=== PATIENT | female | born 1975 | race Caucasian/White ===

== ENCOUNTER → 2016-12-23 | Outpatient (CLI) | payer OTHER ==
[~2016-12-23] MED LIST: LEVO75TA PO; LOSA50TA6 PO; VENL75CA PO; [UNRECOGNIZED DRUG - SUPPLY]
== END | disposition home or self-care (01) ==
LOC: C.LABSPEC 13:36
PROVIDERS: ATTEND Family Medicine
DX: R30.0 Dysuria (principal)

== ENCOUNTER → 2017-01-18 | Outpatient (CLI) | payer OTHER ==
[2017-01-15 09:10] LABS: THYROID STIMULATING HORMONE 0.601 uIu/ml (0.300-4.500)
== END | disposition home or self-care (01) ==
LOC: C.LAB 14:43
PROVIDERS: ATTEND Family Medicine
DX: E03.9 Hypothyroidism, unspecified (principal)

== ENCOUNTER → 2017-04-30 | Outpatient (CLI) | payer OTHER ==
[2017-04-30 11:25] LABS: ALT/SGPT 53 U/L (12-78); AST/SGOT 24 U/L (15-37); BLOOD UREA NITROGEN 8 mg/dl (7-18); BUN/CREATININE RATIO 10.5 (10-20); CALCIUM 8.8 mg/dl (8.5-10.1); CARBON DIOXIDE 28 mmol/L (21-32); CHLORIDE 108 mmol/L (98-107); CREATININE 0.74 mg/dl (0.60-1.20); GLUCOSE 78 mg/dl (70-99); SODIUM 141 mmol/L (136-145)
[2017-04-30 11:42] LABS: ALB/GLOB RATIO 1.2 (0.9-2); ALKALINE PHOSPHATASE 78 U/L (45-117); CHOLESTEROL 151 mg/dl (0-200); CHOLESTEROL/HDL RATIO 3.5; HDL CHOLESTEROL 43 mg/dl; LDL CHOLESTEROL CALCULATED 89 mg/dl; THYROID STIMULATING HORMONE 0.244 uIu/ml (0.300-4.500); TRIGLYCERIDES 96 mg/dl (0-150); VERY LOW DENSITY LIPOPROT CALC 19 mg/dl
== END | disposition home or self-care (01) ==
LOC: C.LAB 16:23
PROVIDERS: ATTEND Family Medicine
DX: E55.9 Vitamin D deficiency, unspecified (principal); E03.9 Hypothyroidism, unspecified; I10 Essential (primary) hypertension; F32.0 Major depressive disorder, single episode, mild

== ENCOUNTER → 2017-06-14 | Outpatient (CLI) | payer OTHER ==
[2017-06-14 16:00] LABS: THYROID STIMULATING HORMONE 0.798 uIu/ml (0.300-4.500)
== END | disposition home or self-care (01) ==
LOC: C.LAB 14:43
PROVIDERS: ATTEND Family Medicine
DX: E03.9 Hypothyroidism, unspecified (principal)

== ENCOUNTER → 2017-12-15 | Outpatient (CLI) | payer OTHER | END | disposition home or self-care (01) | LOC: C.LAB 15:43 | PROVIDERS: ATTEND Family Medicine | DX: E55.9 Vitamin D deficiency, unspecified (principal); E03.9 Hypothyroidism, unspecified ==

== ENCOUNTER → 2018-01-19 | Outpatient (CLI) | payer OTHER ==
--- NOTE | 2018-01-19 16:37 | DIAGNOSTIC IMAGING REPORT ---
EXAMINATION: PELVIC ULTRASOUND (transabdominal and endovaginal scanning)) CLINICAL HISTORY: PELVIC CYST COMPARISON STUDY: None FINDINGS: The uterus measured 9.2 x 4.3 x 4.6 cm. The endometrial stripe measured 3 mm. An IUD is visualized.. The right ovary measured 22 x 10 x 14 mm.. The left ovary measured 35 x 27 x 17 mm. A 15 mm follicle is visualized.. There is no ultrasonographic evidence of ovarian torsion. It should be noted that ovarian torsion can be present with normal Doppler ultrasonographic findings. There was no evidence of pathologic free pelvic fluid. IMPRESSION: 1. No significant abnormalities. Electronically signed by: Marc Burdick M.D. 01/19/2018 4:36 PM Dictated Date/Time: 01/19/2018 4:33 PM
== END | disposition home or self-care (01) ==
LOC: C.ULTR 15:37
PROVIDERS: ATTEND Family Medicine
DX: R10.30 Lower abdominal pain, unspecified (principal)

== ENCOUNTER → 2018-01-26 | Outpatient (CLI) | payer OTHER | END | disposition home or self-care (01) | LOC: C.LAB 15:53 | PROVIDERS: ATTEND Family Medicine | DX: E03.9 Hypothyroidism, unspecified (principal) ==

== ENCOUNTER → 2018-07-08 | Outpatient (CLI) | payer OTHER ==
[~2018-07-08] MED LIST changes: -VENL75CA PO; +VENL75CA88 PO
[2018-07-08 11:41] LABS: BASO % 0.2 %; BASO ABS # 0.01 K/uL (0-0.2); EOS % 2.2 %; EOS ABS # 0.12 K/uL (0-0.5); HEMATOCRIT 40.8 % (37-47); HEMOGLOBIN 13.7 g/dL (12.0-16.0); LYMPH % 33.3 %; LYMPH ABS # 1.78 K/uL (1.2-3.4); MEAN CELL VOLUME 91.5 fL (80-100); MEAN CORPUSCULAR HEMOGLOBIN 30.7 pg (25-34); MEAN CORPUSCULAR HGB CONC 33.6 g/dl (32-36); MEAN PLATELET VOLUME 9.4 fL (7.4-10.4); MONO % 6.2 %; MONO ABS # 0.33 K/uL (0.11-0.59); NEUT % 58.1 %; NEUT ABS # 3.11 K/uL (1.4-6.5); PLATELET COUNT 282 K/uL (130-400); RED CELL DISTRIBUTION WIDTH CV 13.5 % (11.5-14.5); RED CELL DISTRIBUTION WIDTH SD 44.4 fL (36.4-46.3); WHITE BLOOD COUNT 5.35 K/uL (4.8-10.8)
[2018-07-08 12:04] LABS: ALBUMIN 3.9 gm/dl (3.4-5.0); ALT/SGPT 49 U/L (12-78); AST/SGOT 22 U/L (15-37); BLOOD UREA NITROGEN 9 mg/dl (7-18); CALCIUM 8.8 mg/dl (8.5-10.1); CARBON DIOXIDE 26 mmol/L (21-32); CREATININE 0.87 mg/dl (0.60-1.20); GLUCOSE 83 mg/dl (70-99); POTASSIUM 4.1 mmol/L (3.5-5.1); SODIUM 139 mmol/L (136-145)
[2018-07-08 12:15] LABS: ALKALINE PHOSPHATASE 80 U/L (45-117); CHOLESTEROL 192 mg/dl (0-200); LDL CHOLESTEROL CALCULATED 122 mg/dl; TOTAL PROTEIN 7.3 gm/dl (6.4-8.2)
== END | disposition home or self-care (01) ==
LOC: C.LAB 11:19
PROVIDERS: ATTEND Family Medicine
DX: Z13.220 Encounter for screening for lipoid disorders (principal); D50.9 Iron deficiency anemia, unspecified

== ENCOUNTER 2023-07-12 15:53 | Inpatient (IN) ==
[2023-07-12 20:13] LABS: Basophils # (auto) 0.01 K/uL (0-0.2); Basophils % (auto) 0.1 %; Eosinophils # (auto) 0.17 K/uL (0-0.50); Eosinophils % (auto) 2.4 %; Hematocrit (blood only) 44.4 % (37.0-47.0); Hemoglobin 15.1 g/dl (12.0-16.0); Immature Granulocytes # (auto) 0.01 K/uL (0.01-0.20); Immature Granulocytes % (auto) 0.1 %; Lymphocytes # (auto) 1.59 K/uL (1.2-3.4); Lymphocytes % (auto) 22.6 %; Mean Corpuscular Hemoglobin 30.9 pg (25.0-34.0); Mean Corpuscular Volume 90.8 fL (80.0-100.0); Mean Platelet Volume 9.1 fL (9.4-12.4); Monocytes # (auto) 0.38 K/uL (0.11-0.59); Monocytes % (auto) 5.4 %; Neutrophils # (auto) 4.86 K/uL (1.40-6.50); Neutrophils % (auto) 69.4 %; Platelet Count 324 K/uL (130-400); RDW Coefficient of Variation 13.6 % (11.5-14.5); RDW Standard Deviation 44.4 fL (36.4-46.3); Red Blood Count 4.89 M/uL (4.20-5.40); White Blood Count 7.02 K/ul (4.8-10.8)
[2023-07-12 20:31] LABS: Alanine Aminotransferase 154 U/L (7-52); Albumin Globulin Ratio 1.5 (0.9-2); Albumin Level 4.9 gm/dl (3.4-5.0); Alkaline Phosphatase 131 U/L (34-104); Anion Gap 10 (3-11); Aspartate Aminotransferase 39 U/L (13-39); BUN Creatinine Ratio 11.7 (10-20); Bilirubin,Total 0.6 mg/dl (0.2-1.0); Blood Urea Nitrogen 9 mg/dl (6-23); Calcium 10.3 mg/dl (8.6-10.3); Carbon Dioxide 28 mmol/L (21-32); Chloride 104 mmol/L (98-107); Est GFR (African American) 108.1 ml/min; Est GFR (Non-African American) 93.2 ml/min; Globulin 3.3 gm/dl (2.5-4.0); Glucose 93 mg/dl (70-99(Fasting)); Lipase 19 U/L (11-82); Sodium 142 mmol/L (136-145); Total Protein 8.2 gm/dl (6.0-8.3)
[2023-07-12 20:37] LABS: Troponin I High Sensitivity < 2.3 pg/ml (0-14)
[2023-07-12] MEDS ORDERED: ACETAMINOPHEN 500 MG TAB PO STA (21:29)
[2023-07-12] MEDS ORDERED: MoRPHine SULFATE 4 MG/ML 1 ML CARP\\VIAL IV STA ×2 (21:42→22:48)
[2023-07-12] MEDS ORDERED: SODIUM CHLORIDE 0.9% 1,000 ML IV ONE (21:45)
--- NOTE | 2023-07-12 21:53 | Emergency Department Note ---
Impression & Plan Abdominal pain ED Provider Note Provider: Chaim Leal MD DATE OF SERVICE: 07/12/2023 CHIEF COMPLAINT: Increased abdominal pain HISTORY OF PRESENT ILLNESS: Patient is a 47-year-old female history of gastroparesis, significant esophagitis, GERD, thyroiditis, and recent cholecystectomy on the with Dr. Olivarez who presented here today reporting increased upper abdominal pain developing over the last several days. Has had pain since surgery. No falls reported. No nausea or vomiting. Not having much in the way of bowel movements but has been a chronic issue according to mother a t bedside. Has been using home Percocet which has not helped much with the pain. No fevers reported. Tight squeezing this in the mid upper abdomen reported. Denies significant shortness of breath but is trying to breathe through some of the pain. PAST MEDICAL HISTORY: As noted above MEDICATIONS: Reviewed home medications SOCIAL HISTORY: Non-smoker PHYSICAL EXAM: GENERAL: alert and oriented laying on the stretcher appears uncomfortable holding her upper abdomen. Mother at bedside Head: normocephalic and atraumatic EYES: No injection, discharge or icterus. NECK: Trachea midline. Supple. ENT: Mucous membranes pink and moist. LUNGS: Airway patent. No retractions. Breath sounds clear with good air entry bilaterally. HEART: Regular rate and rhythm. No chest wall tenderness ABDOMEN: Soft and non-tender in the lower abdomen holding her upper abdomen with tenderness in the mid epigastric to right upper quadrant. Port sites appear intact and healed without significant erythema. SKIN: Acyanotic, warm, dry, without rashes EXTREMITIES: Without swelling, tenderness or deformity NEUROLOGICAL: No focal deficits. No aphasia. No facial droop or slurred speech. EK beats per min. Normal sinus rhythm. No PVC or PAC. No acute ST segment elevation or depression with QTc 435. CONTINUOUS CARDIAC MONITORING: was ordered and showed a heart rate of 70s-80s bpm in normal sinus rhythm PDMP was checked without noted issue. Patient's laboratory studies and imaging reviewed. Differential includes Appendicitis, ovarian cyst, ovarian torsion, ectopic , TOA, PID, infections, diverticulitis, UTI, obstruction, mesenteric ischemia, aortic pathology, inflammatory bowel disease, renal colic, PUD, pancreatitis, biliary pathology, hernia, volvulus, constipation, as well as other pathologies. IMPRESSION/MEDICAL DECISION MAKING: Patient history of several different GI illness and recent cholecystectomy. Obviously postsurgical some concern for intra-abdominal pathology given her pain here. Not having nausea or vomiting. Reports sites do not appear significantly inflamed. No significant lower abdominal tenderness. No trauma reported. No fever. Afebrile here. Blood work is reassuring without evidence of acute leukocytosis. Doubt sepsis. No evidence of acute hepatitis or pancreatitis based on labs or evidence of acute renal failure. Decreased intake reported however given some IV fluid. Gets morphine for pain. Will send for CT scan to look for acute intra-abdominal pathology. EKG and troponin completed to exclude cardiac etiology and reassuring. Urinalysis negative. CT abdomen pelvis per radiology report with postsurgical changes trace residual free air but no evidence of biliary ductal dilation, radiopaque stone, or fluid collection. Reevaluation the patient still with significant discomfort. We will give some additional morphine. Not having significant hypoxia, tachycardia, troponin elevation, or shortness of breath seems consistent with PE. Discussed with general surgery team here as she is several days postop. Ultrasound completed per surgery direction. Given some Toradol, Protonix and Pepcid. Still with difficult pain and ultrasound not significantly remarkable. CT chest completed to exclude PE although again I have a lower suspicion for this. Discussed with the surgery team to further evaluate given her ongoing pain likely admit for further care and observation DIAGNOSIS: Postoperative abdominal pain DISPOSITION: Evaluated by the surgical team Patient was agreeable with this plan. Past Med/Surg History Medical History Depression Morgan's thyroiditis History of COVID-09 SEPTEMBER 2022>RESOLVED Hypertension Hypothyroidism Morbid obesity with BMI of 40.0-44.9, adult Postoperative bile leak Surgical History History of carpal tunnel release left History of foot surgery plantar warts removed History of tonsillectomy History of wisdom tooth extraction under local Hx laparoscopic cholecystectomy (07/08/23) Laparoscopic Cholecystectomy(Not Applicable) - Rosas Olivarez DO, FACS Family History Mother Family history of reaction to anesthesia difficulty waking Social History Smoking Status: Never smoker Tobacco Type: Cigarettes Second Hand Exposure: No; Do You Dip or Chew Tobacco: No; Hx Alcohol Use: No Hx Substance Use: No Preferred Language: French Communication Ability: Effective Visual Impairment: No Limitations Behavioral Medical Director Required: No Beliefs That Will Affect Care: None Current Living Situation: Family Current Living Situation Comment: Lives with children Other Information That Helps Us Care for You: No Feels Safe at Home: Yes Safety Concerns: Feels Safe At This Time Assistive Devices: None Allergies Allergies Allergy/AdvReac Type Severity Reaction Status Date / Time chlorzoxazone Allergy Severe THROAT & Verified 07/12/23 22:42 FACIAL SWELLING ciprofloxacin Allergy Intermediate Hives Verified 07/12/23 22:42 ferrous fumarate Allergy Intermediate Hives Verified 07/12/23 22:42 [From Prenatabs FA] folic acid Allergy Intermediate Hives Verified 07/12/23 22:42 [From Prenatabs FA] vitamins with Allergy Intermediate Hives Verified 07/12/23 22:42 calcium no.78 [From Prenatabs FA] Quinolones Allergy Intermediate Hives Verified 07/12/23 22:42 Home Meds Home Medications Medication Instructions Recorded Confirmed bupropion HCl 150 mg 24 hr tablet, 150 mg PO QAM 12/30/21 07/12/23 extended release (Wellbutrin XL) bupropion HCl 300 mg 24 hr tablet, 300 mg PO QAM 12/30/21 07/12/23 extended release (Wellbutrin XL) duloxetine 60 mg capsule,delayed 60 mg PO BID 12/30/21 07/12/23 release (Cymbalta) levothyroxine 125 mcg capsule 125 mcg PO QAM 12/30/21 07/12/23 losartan 100 mg tablet 100 mg PO QAM 11/27/22 07/12/23 ergocalciferol (vitamin D2) 1,250 50,000 unit PO WE 07/08/23 07/12/23 mcg (50,000 unit) capsule (Vitamin D2) semaglutide 1 mg/dose (4 mg/3 mL) 0 mg subcut WE 07/08/23 07/12/23 subcutaneous pen injector (Ozempic) Previous Rx's Medication Instructions Recorded pantoprazole 40 mg tablet,delayed 40 mg PO DAILY #90 tabs 06/03/23 release (Protonix) oxycodone-acetaminophen 5 mg-325 1 - 2 tab PO .q4-6h PRN pain, for 07/08/23 mg tablet (Percocet) initial therapy, max 6 tabs per day #15 tabs Results & Data (ED) Vital Signs Vital Signs - 24 hr 07/12/23 16:03 07/12/23 20:30 07/12/23 22:18 Temperature 36.9 C Temperature Source Temporal Artery Scan Pulse Rate 95 H Pulse Rate [Finger] 78 83 Pulse Rhythm [Finger] Regular Regular Pulse Strength [Finger] Normal Normal Respiratory Rate 20 20 Respiratory Effort / Characteristics Non-Labored Spontaneous Non-Labored Spontaneous Respiratory Depth Normal Normal Blood Pressure 128/85 Blood Pressure [Right Arm] 163/89 H 169/105 H Blood Pressure Mean 99 Blood Pressure Mean [Right Arm] 113 126 Pulse Oximetry 98 99 97 Oxygen Delivery Method Room Air Room Air Room Air Sepsis Recent Fever Within 48 Hours No Sepsis New/Unexplained Change in Mental Status No Sepsis Action Taken by Nursing No Action Required 07/13/23 00:11 07/12/23 22:43 07/13/23 02:26 Temperature Temperature Source Pulse Rate 86 Pulse Rate [Finger] 66 76 Pulse Rhythm [Finger] Pulse Strength [Finger] Respiratory Rate 20 18 Respiratory Effort / Characteristics Non-Labored Spontaneous Non-Labored Spontaneous Respiratory Depth Normal Normal Blood Pressure Blood Pressure [Right Arm] 169/105 H 169/101 H Blood Pressure Mean Blood Pressure Mean [Right Arm] 126 123 Pulse Oximetry 95 91 Oxygen Delivery Method Room Air Room Air Sepsis Recent Fever Within 48 Hours Sepsis New/Unexplained Change in Mental Status Sepsis Action Taken by Nursing Laboratory Data 07/12/23 20:00 07/12/23 20:00 Lab Results 07/12/23 07/12/23 07/12/23 Range/Units 20:00 20:00 Unknown WBC 7.02 (4.8-10.8) K/ul RBC 4.89 (4.20-5.40) M/uL Hgb 15.1 (12.0-16.0) g/dl Hct 44.4 (37.0-47.0) % MCV 90.8 (80.0-100.0) fL MCH 30.9 (25.0-34.0) pg MCHC 34.0 (32.0-36.0) g/dL RDW Std Deviation 44.4 (36.4-46.3) fL RDW Coeff of Iker 13.6 (11.5-14.5) % Plt Count 324 (130-400) K/uL MPV 9.1 L (9.4-12.4) fL Immature Gran % (Auto) 0.1 % Neut % (Auto) 69.4 % Lymph % (Auto) 22.6 % Gage % (Auto) 5.4 % Eos % (Auto) 2.4 % Baso % (Auto) 0.1 % Neut # (Auto) 4.86 (1.40-6.50) K/uL Lymph # (Auto) 1.59 (1.2-3.4) K/uL Gage # (Auto) 0.38 (0.11-0.59) K/uL Eos # (Auto) 0.17 (0-0.50) K/uL Baso # (Auto) 0.01 (0-0.2) K/uL Immature Gran # (Auto) 0.01 (0.01-0.20) K/uL Sodium 142 (136-145) mmol/L Potassium 4.0 (3.5-5.1) mmol/L Chloride 104 (98-107) mmol/L Carbon Dioxide 28 (21-32) mmol/L Anion Gap 10 (3-11) BUN 9 (6-23) mg/dl Creatinine 0.77 (0.6-1.2) mg/dl Est Cr Clr Drug Dosing Not Reportable Est GFR ( Amer) 108.1 ml/min Est GFR (Non-Af Amer) 93.2 ml/min BUN/Creatinine Ratio 11.7 (10-20) Glucose 93 (70-99(Fasting)) mg/dl Calcium 10.3 (8.6-10.3) mg/dl Total Bilirubin 0.6 (0.2-1.0) mg/dl AST 39 (13-39) U/L ALT 154 H (7-52) U/L Alkaline Phosphatase 131 H (34-104) U/L Troponin I High Sens < 2.3 (0-14) pg/ml Total Protein 8.2 (6.0-8.3) gm/dl Albumin 4.9 (3.4-5.0) gm/dl Globulin 3.3 (2.5-4.0) gm/dl Albumin/Globulin Ratio 1.5 (0.9-2) Lipase 19 (11-82) U/L Urine Color Dark Yellow Urine Appearance Clear (Clear) Urine pH 7.5 (4.5-7.5) Ur Specific [place] 1.020 (1.000-1.030) Urine Protein Trace H (Negative) Urine Glucose (UA) Negative (Negative) Urine Ketones Trace H (Negative) Urine Blood Negative (Negative) Urine Nitrite Negative (Negative) Urine Bilirubin Negative (Negative) Urine Urobilinogen Negative (Negative) Ur Leukocyte Esterase Negative (Negative) Urine WBC (Auto) 1-5 (0-5) /hpf Urine RBC (Auto) 0-4 (0-4) /hpf U Hyaline Cast (Auto) 1-5 (0-5) /lpf U Epithel Cells (Auto) >30 H (0-5) /lpf Urine Bacteria (Auto) Negative (Negative) Administered Medications Bupropion HCl (Bupropion Xl 150 Mg Tabcr) 150 mg PO QAM PENDING SALE TO [facility] Stop: 08/12/23 08:59 Last Admin: 07/13/23 07:59 Dose: 150 mg Documented By: EILEEN Bupropion HCl (Bupropion Xl 300 Mg Tabcr) 300 mg PO QAM PENDING SALE TO [facility] Stop: 08/12/23 08:59 Last Admin: 07/13/23 07:59 Dose: 300 mg Documented By: EILEEN Duloxetine HCl (Duloxetine Hcl 60 Mg Cap) 60 mg PO BID PENDING SALE TO [facility] Stop: 08/12/23 08:59 Last Admin: 07/13/23 08:00 Dose: 60 mg Documented By: EILEEN Heparin Sodium (Porcine) (Heparin Sod 5,000 Unit/0.5 Ml Vial) 5,000 units SQ Q12 PENDING SALE TO [facility] Stop: 08/12/23 08:59 Last Admin: 07/13/23 08:00 Dose: Not Given Documented By: EILEEN Lactated Ringer's (Lr) 1,000 mls @ 75 mls/hr IV .[id number] PENDING SALE TO [facility] Stop: 08/12/23 05:38 Last Admin: 07/13/23 06:26 Dose: 75 mls/hr Documented By: KIAH Pantoprazole Sodium 40 mg/ (Syringe) 10 mls @ 5 mls/min IV DAILY@1100 PENDING SALE TO [facility] Stop: 08/12/23 10:59 Last Admin: 07/13/23 11:38 Dose: 5 mls/min Documented By: SHRUTHI Ketorolac Tromethamine (Ketorolac Tromethamine 15 Mg/Ml Vial) 15 mg IV Q6H PRN PRN Reason: Pain Stop: 07/18/23 05:38 Last Admin: 07/13/23 09:23 Dose: 15 mg Documented By: EILEEN Levothyroxine Sodium (Levothyroxine Sodium 125 Mcg Tablet) 125 mcg PO DAILYBB PENDING SALE TO [facility] Stop: 08/12/23 06:29 Last Admin: 07/13/23 08:00 Dose: 125 mcg Documented By: EILEEN Losartan Potassium (Losartan Potassium 50 Mg Tab) 100 mg PO QAM PENDING SALE TO [facility] Stop: 08/12/23 08:59 Last Admin: 07/13/23 08:00 Dose: 100 mg Documented By: EILEEN Morphine Sulfate (Morphine Sulfate 4 Mg/Ml 1 Ml Carp\Vial) 3 mg IV Q3H PRN PRN Reason: Severe Pain (Scale 7, 8, 9,10) Stop: 07/27/23 05:38 Last Admin: 07/13/23 11:51 Dose: 3 mg Documented By: SHRUTHI Discontinued Medications Acetaminophen (Acetaminophen 500 Mg Tab) 1,000 mg PO NOW STA Stop: 07/12/23 21:30 Last Admin: 07/12/23 21:32 Dose: 1,000 mg Documented By: KIAH Sodium Chloride (Nss 1000ml) 1,000 mls @ 999 mls/hr IV .Q1H1M ONE Stop: 07/12/23 22:45 Last Infusion: 07/12/23 22:58 Dose: 0 mls/hr Documented By: Admin: 07/12/23 21:59 Dose: 999 mls/hr Documented By: BRENDEN Famotidine (Pepcid 20mg Iv Push) 20 mg in 5 mls @ 2.5 mls/min IV NOW STA Stop: 07/12/23 23:11 Last Admin: 07/12/23 23:39 Dose: 2.5 mls/min Documented By: KIAH Pantoprazole Sodium 40 mg/ (Syringe) 10 mls @ 5 mls/min IV NOW ONE Stop: 07/12/23 23:11 Last Admin: 07/12/23 23:39 Dose: 5 mls/min Documented By: KIAH Sodium Chloride (Nss) 500 mls @ 999 mls/hr IV .Q31M ONE Stop: 07/13/23 00:34 Last Infusion: 07/13/23 00:44 Dose: 0 mls/hr Documented By: Admin: 07/13/23 00:16 Dose: 999 mls/hr Documented By: KIAH Ioversol (Optiray 320 100ml) 93 ml IV ONCE ONE Stop: 07/12/23 22:07 Last Admin: 07/12/23 22:07 Dose: 93 ml Documented By: AKIKO Ioversol (Ioversol 350 Mg 125ml Prefilled Syringe) 125 ml IV ONCE ONE Stop: 07/13/23 01:24 Last Admin: 07/13/23 01:23 Dose: 116 ml Documented By: CAROLINE Ketorolac Tromethamine (Ketorolac Tromethamine 15 Mg/Ml Vial) 10 mg IV NOW STA Stop: 07/12/23 23:10 Last Admin: 07/12/23 23:39 Dose: 10 mg Documented By: KIAH Morphine Sulfate (Morphine Sulfate 4 Mg/Ml 1 Ml Carp\Vial) 4 mg IV NOW STA Stop: 07/12/23 21:43 Last Admin: 07/12/23 21:58 Dose: 4 mg Documented By: BRENDEN Morphine Sulfate (Morphine Sulfate 4 Mg/Ml 1 Ml Carp\Vial) 4 mg IV NOW STA Stop: 07/12/23 22:49 Last Admin: 07/12/23 22:57 Dose: 4 mg Documented By: KIAH Morphine Sulfate (Morphine Sulfate 2 Mg/Ml Carp) 2 mg IV NOW STA Stop: 07/13/23 00:04 Last Admin: 07/13/23 00:15 Dose: 2 mg Documented By: KIAH Imaging Data Radiologist's Impression: Chest CTA 07/13/23 00:03 Exam(s): CTA CHEST IV Amt: 116 ML OPTIRAY 350 EXAM: CT Angiography Chest With Intravenous Contrast CLINICAL HISTORY: Reason for exam: PE, epigastric pain post op. TECHNIQUE: Axial computed tomographic angiography images of the chest with intravenous contrast. CTDI is 25.65 mGy and DLP is 747.99 mGy-cm. Automated exposure control was utilized for the study. A dose lowering technique was utilized adhering to the principles of ALARA. 2D MIP reconstructed images were created and reviewed. COMPARISON: Reference is made to prior CT performed earlier on the same date.. FINDINGS: Pulmonary arteries: Unremarkable. No pulmonary embolism. Aorta: No acute findings. No thoracic aortic aneurysm. Lungs: Unremarkable. No mass. No consolidation. Pleural space: Unremarkable. No significant effusion. No pneumothorax. Heart: Unremarkable. No cardiomegaly. No significant pericardial effusion. No evidence of RV dysfunction. Bones/joints: No acute fracture. No dislocation. Soft tissues: Unremarkable. Lymph nodes: Unremarkable. No enlarged lymph nodes. Intraperitoneal space: There are tiny foci of extraluminal gas within the right upper quadrant unchanged when compared with the CT performed earlier on the same date. This is likely postoperative in nature. Other findings: IMPRESSION: No acute findings in the visualized arteries of the chest. Electronically signed by: Arjun Cole MD 07/13/23 02:29 AM Discharge Plan Visit Data Chief Complaint: Abdominal Pain ED Provider: Chaim Leal Discharge Problem: Abdominal pain Patient Disposition: Admitted As Inpatient Discharge Instructions Interventions: ED Discharge Assessment Last Done: 07/13/23 05:39
[2023-07-12] MEDS ORDERED: OPTIRAY 320 100ml IV ONE (22:06)
[2023-07-12 22:10] LABS: Appearance Urine Clear (Clear); Bacteria Urine Automated Negative (Negative); Bilirubin Urine Negative (Negative); Blood Urine Negative (Negative); Color Urine Dark Yellow; Epithelial Cell Urine Auto >30 /lpf (0-5); Glucose Urine UA Negative (Negative); Ketones Urine Trace (Negative); Leukocyte Esterase Urine Negative (Negative); Nitrite Urine Negative (Negative); RBC Urine Automated 0-4 /hpf (0-4); Urobilinogen Urine Negative (Negative); pH Urine 7.5 (4.5-7.5)
[2023-07-12 22:13] LABS: Protein Urine Trace (Negative)
--- NOTE | 2023-07-12 22:30 | CT Scan Report ---
Exam(s): CT ABDOMEN + PELVIS With Contrast IV Amt: 93 ml optiray 320 EXAM: CT Abdomen and Pelvis With Intravenous Contrast CLINICAL HISTORY: Reason for exam: s/p flex, increased pain. TECHNIQUE: Axial computed tomography images of the abdomen and pelvis with intravenous contrast. CTDI is 27.1 mGy and DLP is 1350.03 mGy-cm. Automated exposure control was utilized for the study. A dose lowering technique was utilized adhering to the principles of ALARA. CONTRAST: Patient received 93 ml optiray 320 of IV contrast COMPARISON: 07/08/2023 FINDINGS: ABDOMEN: Liver: Unremarkable. Gallbladder and bile ducts: Postsurgical changes from a recent cholecystectomy. Trace residual free air. No biliary dilatation, residual radiopaque stone, or fluid collection. Pancreas: Unremarkable. Spleen: Unremarkable. Adrenals: Unremarkable. Kidneys and ureters: Unremarkable. No obstructing stones. No hydronephrosis. Stomach and bowel: Unremarkable. PELVIS: Appendix: No findings to suggest acute appendicitis. Bladder: Unremarkable. Reproductive: Vaginal cyst on the left measuring 3.2 x 2.2 cm. IUD within the uterus. ABDOMEN and PELVIS: Intraperitoneal space: See above. Bones/joints: No acute fracture. Soft tissues: Unremarkable. Vasculature: Unremarkable. Lymph nodes: Unremarkable. IMPRESSION: 1. Postsurgical changes from a recent cholecystectomy. Trace residual free air. No biliary dilatation, residual radiopaque stone, or fluid collection. 2. Vaginal cyst on the left measuring 3.2 x 2.2 cm. Electronically signed by: Juan C Sigala MD 07/12/23 22:28 PM
[2023-07-12] MEDS ORDERED: KETOROLAC TROMETHAMINE 15 MG/ML VIAL IV STA (23:09)
[2023-07-12] MEDS ORDERED: FAMOTIDINE 20MG IV PUSH 20 MG/5 ML SYR IV STA (23:10)
[2023-07-12] MEDS ORDERED: PANTOprazole 40 MG in SYRINGE 0 ML IV ONE (23:10)
--- NOTE | 2023-07-12 23:36 | Surgery Consultation ---
Date of Consultation July 12, 2023 Assessment & Plan (1) Abdominal pain: Due to the patient's abdominal pain and recent surgery we have been asked to evaluate the patient by the treating emergency room physician. I have discussed the case in detail with my attending physician Dr. Gilberto Cheng. We recommend proceeding as follows: Obtain a right upper quadrant ultrasound for further delineation of the patient's biliary tree, particular to see if there is any biliary ductal dilatation or fluid collections in the right upper quadrant not identified by CAT scan Provide the patient with analgesics in the form of NSAIDthe treating emergency room physician notes that he will order a dose of Toradol Treating emergency room physician is also noted he will administer a proton pump inhibitor We will reevaluate the patient upon the completion of her ultrasound and also assess if there is been any relief of her pain with the use of Toradol Since my initial visit with the patient the patient underwent a abdominal ultrasound of the right upper quadrant. This showed no acute findings on this study. This was followed with a CT scan of the chest which was negative for pulmonary emboli. There is no evidence of pneumonia. The study also demonstrated a tiny focus of extraluminal gas in the right upper quadrant which was similar to what was noted on the previously noted CT scan and felt to be postoperative in nature. I discussed with the nurse who is attending to the patient and since my initial visit the patient has received an additional 2 mg of intravenous morphine. She has received 10 mg of intravenous Toradol. She is also received 20 mg of intravenous Pepcid and 40 mg of intravenous Protonix. Following the administration of the antacids the patient seemed to have some relief of her pain. I reevaluated the patient multiple times while in the emergency department. At one point the patient was actually sleeping and felt somewhat comfortable but was very uncertain about returning home. Shortly after this visit I was notified by the nurse the patient noted that she was having recurrence of pain that caused her presentation to the emergency department. Due to the patient's recurrence of pain she is hesitant to go home and does not feel she will do well. We will therefore admit her to the hospital for pain control measures. We will proceed as follows: Analgesics in the form of intravenous morphine, intravenous Toradol, and intravenous Tylenol utilized Antiemetics to be provided We will keep the patient n.p.o. for the present time We will provide gentle hydration with IV fluids We will repeat labs at 6:00 AM on 07/13/2023 Patient be reevaluated following completion of her a.m. labs. Pending the patient's progress additional studies may or may not be ordered. If the patient remains clinically stable consideration be given to advancing her diet. If the patient has adequate pain control with intravenous pain medications attempts can be made to transition her to oral pain medications and if her discomfort/pain can be adequately controlled with oral analgesics we will see if the patient is suitable for discharge home at that time Additional recommendations be forthcoming based on her clinical progress We will use subcutaneous heparin for DVT prevention The patient be a level 1 full code Case Discussed with Dr. Olivarez----recommends obtaining HIDA scan to ensure no biliary leak. This has been ordered. Supervising Physician Co-Signing Physician Notes Patient discussed with Jamie Mcnair early this morning, labs and imaging reviewed, agree with above. Status post uncomplicated laparoscopic cholecystectomy for acute calculus cholecystitis last week, presented with sudden onset epigastric pain. Work-up has been largely unremarkable with overall normal labs and a normal WBC, CT scan with normal postoperative changes and no evidence of other abnormality, and right upper quadrant ultrasound that shows a nondilated common bile duct and otherwise normal postoperative changes. We will obtain a HIDA scan and treat her current symptoms. Possible MRCP. I do feel that a bile leak or choledocholithiasis are unlikely. If the work-up is negative and her pain persist, may consult GI for possible EGD or other recommendations. History of Present Illness Reason for Consultation: Abdominal pain, status post laparoscopic cholecystectomy History of Present Illness This is a 47-year-old female who underwent a recent surgical procedure by Dr. Olivarez of [facility] general surgery. On 07/08/2023 the patient underwent a laparoscopic cholecystectomy. The patient notes that she presented to the emergency department secondary to abdominal pain and on the same day she underwent the above-noted surgical procedure and was ultimately able to be discharged home the same day. On that day the patient did have a CBC which revealed her white blood cell count, hemoglobin, hematocrit, and platelet count were all within normal range. Also on this day she had a chemistry profile where sodium and potassium along with her BUN and creatinine were normal. She did not have any elevation of her bilirubin or alkaline phosphatase. Her ALT was within the normal range and her AST only had a slight elevation at 57. Her lipase on this day was also nonelevated. Imaging performed at that time consisted of a CT scan of the abdomen and pelvis that showed a mildly distended gallbladder with some pericholecystic fluid and a 1.8 cm gallstone near the neck of the gallbladder concerning for acute cholecystitis. As noted the patient was discharged home the same day as her surgery. She notes that she was doing well upon return home. She was initially tolerating liquids and then slowly advanced her diet to solids which she has been tolerating in small amounts. She notes that her most recent bowel movement was 3 days ago. She has not had any nausea or vomiting and has not had any fevers, shakes, or chills. Patient says that she has been taking Percocet as prescribed for pain control which has been effective. Patient presented to the emergency department today which was 07/12/2023 as at approximately 1:00 PM the patient developed severe abdominal pain. Patient notes that the pain is across her upper abdomen but is most concentrated in the epigastric area just superior to one of her laparoscopic incisions. She has not had any nausea or vomiting. She has not had any fevers, shakes, or chills. She has not had any difficulty urinating and has noted she has not had a bowel movement for 3 days. She does not note any palliative or provocative factors to her pain. Since arrival to the emergency department today the patient has had labs and imaging which I independent reviewed. A CT scan of the abdomen pelvis showed patient had findings consistent with recent cholecystectomy. There is some trace residual free air but no biliary ductal dilatation or residual radiopaque stones noted. There were no significant fluid collections noted. Labs include a CBC were white blood cell count, hemoglobin, hematocrit, and platelet count were all within normal range. Chemistry profile showed sodium, potassium, BUN, and creatinine were all within normal range. Her bilirubin and AST were nonelevated. She did have an elevated ALT of 154 and elevated alkaline phosphatase of 131. Her lipase was nonelevated and a urinalysis was not indicative of infection. In the emergency department the patient has received analgesics in the form of 1000 mg of intravenous Tylenol and a total of 8 mg of intravenous morphine. Despite these modalities the patient continues to complain of severe pain as noted above. Patient's chart was reviewed and she does follow with the [facility] physician group gastroenterology. The patient did undergo an EGD in November of this year where patient was found to have chronic gastritis and findings suggestive of eosinophilic esophagitis. She has also had a gastric emptying study in January of this year which revealed findings consistent with delayed gastric emptying for solid food. Allergies Allergy/AdvReac Type Severity Reaction Status Date / Time chlorzoxazone Allergy Severe THROAT & Verified 07/12/23 22:42 FACIAL SWELLING ciprofloxacin Allergy Intermediate Hives Verified 07/12/23 22:42 ferrous fumarate Allergy Intermediate Hives Verified 07/12/23 22:42 [From Prenatabs FA] folic acid Allergy Intermediate Hives Verified 07/12/23 22:42 [From Prenatabs FA] vitamins with Allergy Intermediate Hives Verified 07/12/23 22:42 calcium no.78 [From Prenatabs FA] Quinolones Allergy Intermediate Hives Verified 07/12/23 22:42 Home Medications Medication Instructions Recorded Confirmed Type bupropion HCl 150 mg 24 hr tablet, 150 mg PO QAM 12/30/21 07/12/23 History extended release (Wellbutrin XL) bupropion HCl 300 mg 24 hr tablet, 300 mg PO QAM 12/30/21 07/12/23 History extended release (Wellbutrin XL) duloxetine 60 mg capsule,delayed 60 mg PO BID 12/30/21 07/12/23 History release (Cymbalta) levothyroxine 125 mcg capsule 125 mcg PO QAM 12/30/21 07/12/23 History losartan 100 mg tablet 100 mg PO QAM 11/27/22 07/12/23 History pantoprazole 40 mg tablet,delayed 40 mg PO DAILY #90 tabs 06/03/23 07/12/23 Rx release (Protonix) ergocalciferol (vitamin D2) 1,250 50,000 unit PO WE 07/08/23 07/12/23 History mcg (50,000 unit) capsule (Vitamin D2) oxycodone-acetaminophen 5 mg-325 1 - 2 tab PO .q4-6h PRN pain, for 07/08/23 07/12/23 Rx mg tablet (Percocet) initial therapy, max 6 tabs per day #15 tabs semaglutide 1 mg/dose (4 mg/3 mL) 0 mg subcut WE 07/08/23 07/12/23 History subcutaneous pen injector (Ozempic) Patient History Medical History Depression Morgan's thyroiditis History of COVID-09 SEPTEMBER 2022>RESOLVED Hypertension Hypothyroidism Morbid obesity with BMI of 40.0-44.9, adult Surgical History History of carpal tunnel release left History of foot surgery plantar warts removed History of tonsillectomy History of wisdom tooth extraction under local Hx laparoscopic cholecystectomy (07/08/23) Laparoscopic Cholecystectomy(Not Applicable) - Rosas Olivarez DO, FACS Family History Mother Family history of reaction to anesthesia difficulty waking Social History Smoking Status: Never smoker Tobacco Type: Cigarettes Second Hand Exposure: No; Do You Dip or Chew Tobacco: No; Hx Alcohol Use: No Hx Substance Use: No Preferred Language: Egyptian Communication Ability: Effective Visual Impairment: No Limitations Group Care Worker Required: No Beliefs That Will Affect Care: None Current Living Situation: Family Current Living Situation Comment: Lives with children Other Information That Helps Us Care for You: No Feels Safe at Home: Yes Safety Concerns: Feels Safe At This Time Assistive Devices: None Review of Systems Constitutional: no fever and no chills Ear, Nose, Mouth, Throat: no hearing loss Respiratory: no cough and no dyspnea Cardiovascular: no chest pain Gastrointestinal: as per Subjective / HPI Genitourinary: no dysuria Musculoskeletal: no back pain Integumentary: no rash Neurologic: no localized weakness Physical Exam Constitutional: well developed and well nourished Patient was not toxic appearing but did appear to be uncomfortable Eyes: + anicteric sclerae ENMT: Ears: no hearing impairment and no external ear abnormality No sublingual jaundice noted Neck: trachea midline Respiratory: normal respiratory effort; no respiratory distress Breathing appeared to be shallow as patient noted deep breaths exacerbated her abdominal pain Cardiovascular: Rate/Rhythm: regular rate and regular rhythm Vessels: radial pulses present Gastrointestinal (Abdomen): Abdomen is soft and nondistended. It is nonrigid. Patient had 4 laparoscopic incisions from previous cholecystectomy which are all clean, dry, and intact. There is no rebound tenderness or guarding but patient did have significant pain with palpation in the epigastric area/proximity of her superiormost laparoscopic incision. Musculoskeletal: No calf tenderness, pedal pulses are not palpable but feet are warm and well- perfused Skin: no rashes Neurologic: moves all extremities Psychiatric: A+Ox3, euthymic affect Results & Data Vital Signs (Past 12 Hours) Vital Signs Temp Pulse Pulse Resp BP BP Pulse Ox 07/12/23 22:18 83 20 169/105 H 97 07/12/23 20:30 78 20 163/89 H 99 07/12/23 16:03 36.9 C 95 H 128/85 98 O2 Del Method 07/12/23 22:18 Room Air 07/12/23 20:30 Room Air 07/12/23 16:03 Room Air PG Care Time/CCT Total # of Minutes Spent Total Time Spent with Patient: Total time spent is greater than 50% in coordination of care (as documented) at patient's floor/unit and/or counseling patient: Coding Level of Care Code None Diagnoses Abdominal pain R10.9
[2023-07-13] MEDS ORDERED: MoRPHine SULFATE 2 MG/ML CARP IV STA (00:03)
[2023-07-13] MEDS ORDERED: SODIUM CHLORIDE 0.9% 500 ML IV ONE (00:04)
--- NOTE | 2023-07-13 00:40 | Ultrasound Report ---
Exam(s): US LIVER EXAM: US Abdomen Limited CLINICAL HISTORY: Reason for exam: upper abd pain s/p flex. TECHNIQUE: Real-time ultrasound of the abdomen with image documentation. COMPARISON: No relevant prior studies available. FINDINGS: Gallbladder: Gallbladder surgically absent. IMPRESSION: No acute findings in the visualized abdomen. Electronically signed by: Arjun Cole MD 07/13/23 00:38 AM
[2023-07-13] MEDS ORDERED: IOVERSOL 350 MG 125mL Prefilled Syringe IV ONE (01:23)
--- NOTE | 2023-07-13 02:30 | CT Scan Report ---
Exam(s): CTA CHEST IV Amt: 116 ML OPTIRAY 350 EXAM: CT Angiography Chest With Intravenous Contrast CLINICAL HISTORY: Reason for exam: PE, epigastric pain post op. TECHNIQUE: Axial computed tomographic angiography images of the chest with intravenous contrast. CTDI is 25.65 mGy and DLP is 747.99 mGy-cm. Automated exposure control was utilized for the study. A dose lowering technique was utilized adhering to the principles of ALARA. 2D MIP reconstructed images were created and reviewed. COMPARISON: Reference is made to prior CT performed earlier on the same date.. FINDINGS: Pulmonary arteries: Unremarkable. No pulmonary embolism. Aorta: No acute findings. No thoracic aortic aneurysm. Lungs: Unremarkable. No mass. No consolidation. Pleural space: Unremarkable. No significant effusion. No pneumothorax. Heart: Unremarkable. No cardiomegaly. No significant pericardial effusion. No evidence of RV dysfunction. Bones/joints: No acute fracture. No dislocation. Soft tissues: Unremarkable. Lymph nodes: Unremarkable. No enlarged lymph nodes. Intraperitoneal space: There are tiny foci of extraluminal gas within the right upper quadrant unchanged when compared with the CT performed earlier on the same date. This is likely postoperative in nature. Other findings: IMPRESSION: No acute findings in the visualized arteries of the chest. Electronically signed by: Arjun Cole MD 07/13/23 02:29 AM
[2023-07-13] MEDS ORDERED: ACETAMINOPHEN 1,000 MG/100 ML VIAL IV PRN (05:39)
[2023-07-13] MEDS ORDERED: ONDANSETRON INJ 2 MG/ML 2 ML VIAL IV PRN ×2 (05:39→14:40)
[2023-07-13] MEDS ORDERED: KETOROLAC TROMETHAMINE 15 MG/ML VIAL IV PRN (05:39)
[2023-07-13] MEDS: LACTATED RINGER'S 1,000 ML IV SCH ×2 (06:26→18:09)
[2023-07-13] MEDS: buPROPion XL 300 MG TABCR PO SCH (07:59)
[2023-07-13] MEDS: buPROPion XL 150 MG TABCR PO SCH (07:59)
[2023-07-13] MEDS: HEPARIN SOD 5,000 UNIT/0.5 ML VIAL SQ SCH ×2 (08:00→20:04)
[2023-07-13] MEDS: LOSARTAN POTASSIUM 50 MG TAB PO SCH (08:00)
[2023-07-13] MEDS: LEVOTHYROXINE SODIUM 125 MCG TABLET PO SCH (08:00)
[2023-07-13] MEDS: DULoxetine HCL 60 MG CAP PO SCH ×2 (08:00→20:04)
[2023-07-13 08:55] LABS: Basophils # (auto) 0.01 K/uL (0-0.2); Basophils % (auto) 0.2 %; Eosinophils # (auto) 0.15 K/uL (0-0.50); Eosinophils % (auto) 2.6 %; Hematocrit (blood only) 38.1 % (37.0-47.0); Hemoglobin 12.7 g/dl (12.0-16.0); Immature Granulocytes # (auto) 0.01 K/uL (0.01-0.20); Immature Granulocytes % (auto) 0.2 %; Lymphocytes # (auto) 1.09 K/uL (1.2-3.4); Lymphocytes % (auto) 19.1 %; Mean Corpuscular Hemoglobin 30.5 pg (25.0-34.0); Mean Corpuscular Hgb Conc 33.3 g/dL (32.0-36.0); Mean Corpuscular Volume 91.4 fL (80.0-100.0); Mean Platelet Volume 9.3 fL (9.4-12.4); Monocytes # (auto) 0.37 K/uL (0.11-0.59); Monocytes % (auto) 6.5 %; Neutrophils # (auto) 4.08 K/uL (1.40-6.50); Neutrophils % (auto) 71.4 %; Platelet Count 256 K/uL (130-400); RDW Coefficient of Variation 13.6 % (11.5-14.5); RDW Standard Deviation 45.5 fL (36.4-46.3); Red Blood Count 4.17 M/uL (4.20-5.40); White Blood Count 5.71 K/ul (4.8-10.8)
[2023-07-13] MEDS ORDERED: PANTOprazole 40 MG TAB PO SCH (09:00)
[2023-07-13 09:33] LABS: Albumin Globulin Ratio 1.5 (0.9-2); Albumin Level 3.7 gm/dl (3.4-5.0); BUN Creatinine Ratio 9.8 (10-20); Bilirubin,Total 0.6 mg/dl (0.2-1.0); Calcium 8.9 mg/dl (8.6-10.3); Creatinine Clr Calc Pharmacy 121.8 ml/min; Est GFR (African American) 126.9 ml/min; Est GFR (Non-African American) 109.5 ml/min; Globulin 2.5 gm/dl (2.5-4.0); Potassium 3.4 mmol/L (3.5-5.1); Total Protein 6.2 gm/dl (6.0-8.3)
--- NOTE | 2023-07-13 09:52 | Surgery Progress Note ---
Date of Service July 13, 2023 Assessment & Plan (1) Abdominal pain: Plan: patient here with abdominal pain s/p lap flex on 07/[address] scan without any acute findings Labs today show normal WBC 5,Hbg 12. LFTs with mild elevation in ALT 99 and Alkp 113 Will obtain HIDA this AM for further evaluation, scheduled for 10am Curbsided hospitalists regarding prior lyme testing, usually 2/3 igm bands should be + for diagnosis and patient just with one. but if any clinical suspicions can treat. without any other symptoms will likely hold off for now as pain appears localized in abdomen and no other s&s of lyme will f/u on HIDA scan (2) Postoperative bile leak: Admission and Anticipated Discharge Date Admission Date: July 13, 2023 Supervising Physician Co-Signing Physician Notes Patient seen and examined, agree with above. Status post lap flex, admitted with intractable epigastric abdominal pain. CT and ultrasound unremarkable. Labs overall normal except for mild elevation of some LFTs and alk phos. HIDA scan performed showed evidence that was concerning for bile leak. GI has been consulted and is planning on doing ERCP either later today or tomorrow. Hopeful discharge within 24 hours of ERCP and stent. NUCLEAR HEPATOBILIARY SCAN CLINICAL HISTORY: Recent cholecystectomy. Clinical concern for bile leak. COMPARISON STUDY: Abdominal CT and ultrasound dated 07/12/2023. TECHNIQUE: Dynamic images of the liver and anterior abdomen were obtained every 5 minutes for a total of 35 minutes following the IV administration of 5.2 mCi of technetium 99m Mebrofenin. An additional image was acquired at 60 minutes after the patient laid in the right lateral decubitus position. FINDINGS: The hepatobiliary scan shows prompt and homogeneous hepatic uptake. There is visualized activity within the intra and extrahepatic biliary tree at 10 minutes. There is normal biliary to bowel transit, with small bowel visualized by 20 minutes. There is no pooling of tracer in the gallbladder fossa. There is indeterminate accumulation of tracer below the left lobe of the liver. On the 60 minute images are also also tracer seen along the inferior aspect of the right lobe. IMPRESSION: 1. Status post cholecystectomy. 2. There is abnormal pooling of tracer below the left lobe of the liver on the initial images. This appears to move inferior to the right lobe on the delayed 60 minute after the patient laid right side down. Findings are highly suspicious for bile leak. Subjective Patient reports ongoing pain, but that it is better than we she first arrived. No nausea/vomiting. no other complaints. Physical Exam Physical Exam: resting, but awake/alert, in no distress Respiratory: normal respiratory effort Gastrointestinal (Abdomen): Inspection/Auscultation: + abdominal surgical incision (c/d/i no signs of infection); abdomen not distended Percussion/Palpation: + abdomen tender (mild discomfort to palpation in the epigastric and RUQ regions) and abdomen soft Results & Data Vital Signs (Past 12 Hours) Vital Signs Pulse Pulse Resp BP Pulse Ox O2 Del Method 07/13/23 08:00 85 22 131/89 94 Room Air 07/13/23 06:00 72 18 141/95 H 91 Room Air 07/13/23 04:47 74 07/13/23 04:00 79 16 142/92 H 91 Room Air 07/13/23 02:26 76 18 169/101 H 91 Room Air 07/12/23 22:43 86 07/13/23 00:11 66 20 169/105 H 95 Room Air 07/12/23 22:18 83 20 169/105 H 97 Room Air PG Care Time/CCT Total # of Minutes Spent Total Time Spent with Patient: Total time spent is greater than 50% in coordination of care (as documented) at patient's floor/unit and/or counseling patient: Coding Level of Care Code None Diagnoses Abdominal pain R10.9 Postoperative bile leak K91.89; K83.8
--- NOTE | 2023-07-13 11:28 | Nuclear Medicine Report ---
NUCLEAR HEPATOBILIARY SCAN CLINICAL HISTORY: Recent cholecystectomy. Clinical concern for bile leak. COMPARISON STUDY: Abdominal CT and ultrasound dated 07/12/2023. TECHNIQUE: Dynamic images of the liver and anterior abdomen were obtained every 5 minutes for a total of 35 minutes following the IV administration of 5.2 mCi of technetium 99m Mebrofenin. An additional image was acquired at 60 minutes after the patient laid in the right lateral decubitus position. FINDINGS: The hepatobiliary scan shows prompt and homogeneous hepatic uptake. There is visualized act ivity within the intra and extrahepatic biliary tree at 10 minutes. There is normal biliary to bowel transit, with small bowel visualized by 20 minutes. There is no pooling of tracer in the gallbladder fossa. There is indeterminate accumulation of tracer below the left lobe of the liver. On the 60 min roverto images are also also tracer seen along the inferior aspect of the right lobe. IMPRESSION: 1. Status post cholecystectomy. 2. There is abnormal pooling of tracer below the left lobe of the liver on the initial images. This a ppears to move inferior to the right lobe on the delayed 60 minute after the patient laid right side down. Findings are highly suspicious for bile leak. ACT 112: Negative or not required by law. Electronically signed by: Norbert Henley M.D. 07/13/2023 11:25 AM
[2023-07-13] MEDS: PANTOprazole 40 MG in SYRINGE 0 ML IV SCH (11:38)
[2023-07-13] MEDS: MoRPHine SULFATE 4 MG/ML 1 ML CARP\\VIAL IV PRN ×2 (11:51→20:26)
[2023-07-13] MEDS ORDERED: INDOMETHACIN 50 MG SUPP PR ONE ×2 (12:38→15:15)
--- NOTE | 2023-07-13 12:48 | Gastrointestinal Consultation ---
Date of Consultation July 13, 2023 Assessment & Plan (1) Postoperative bile leak: Pt is a 47 yo female s/p lap flex on 07/08, who presented with upper abd pain and LFTs elevation, noted to have bile leak on HIDA scan. - Keep NPO - IVF hydration - Symptomatic management - Trend LFTs - ERCP with Dr. Castro today in OR - GI recs after ERCP completed Supervising Physician Co-Signing Physician Notes I saw and evaluated the patient. We were consulted with regard to recent onset abdominal pain in the setting of a recent cholecystectomy. The patient notes that she has had approximately 24 hours of symptoms, she did have a recent HIDA scan which seems to demonstrate a leak. We were asked to perform ERCP for biliary decompression and bypassing of the leak. We have discussed the risks and benefits of the ERCP to include bleeding infection perforation pain pancreatitis failed biliary cannulation and need for follow-up studies. Plan ERCP today History of Present Illness Reason for Consultation: Bile leak Requesting Physician: Dr. Marvin Cooper Attending Physician: Dr. Lisa Castro History of Present Illness Pt is a 47 yo female w PMHx of EoE, gastroparesis, carpal tunnel syndrome, GERD, Morgan's thyroiditis who presented to ED w c/o upper abd pain. Hx of lap flex by Dr. Olivarez on 07/08 for cholecystitis. She reports upper abd pain started on 07/09. Denies associated fever, chills, CP, SOB, n/v or bowel habit changes. On eval labs wo leukocytosis, no renal issues, LFTs: Tibli 0.6, AST 24, ALT 99, Alk phos 113, Lipase 113. CT abd/pelvis, Liver us w post flex changes, HIDA scan showed abnormal pooling of tracer below the left lobe of the liver on the initial images suspicious for bile leak. Allergies Allergy/AdvReac Type Severity Reaction Status Date / Time chlorzoxazone Allergy Severe THROAT & Verified 07/12/23 22:42 FACIAL SWELLING ciprofloxacin Allergy Intermediate Hives Verified 07/12/23 22:42 ferrous fumarate Allergy Intermediate Hives Verified 07/12/23 22:42 [From Prenatabs FA] folic acid Allergy Intermediate Hives Verified 07/12/23 22:42 [From Prenatabs FA] vitamins with Allergy Intermediate Hives Verified 07/12/23 22:42 calcium no.78 [From Prenatabs FA] Quinolones Allergy Intermediate Hives Verified 07/12/23 22:42 Home Medications Medication Instructions Recorded Confirmed Type bupropion HCl 150 mg 24 hr tablet, 150 mg PO QAM 12/30/21 07/12/23 History extended release (Wellbutrin XL) bupropion HCl 300 mg 24 hr tablet, 300 mg PO QAM 12/30/21 07/12/23 History extended release (Wellbutrin XL) duloxetine 60 mg capsule,delayed 60 mg PO BID 12/30/21 07/12/23 History release (Cymbalta) levothyroxine 125 mcg capsule 125 mcg PO QAM 12/30/21 07/12/23 History losartan 100 mg tablet 100 mg PO QAM 11/27/22 07/12/23 History pantoprazole 40 mg tablet,delayed 40 mg PO DAILY #90 tabs 06/03/23 07/12/23 Rx release (Protonix) ergocalciferol (vitamin D2) 1,250 50,000 unit PO WE 07/08/23 07/12/23 History mcg (50,000 unit) capsule (Vitamin D2) oxycodone-acetaminophen 5 mg-325 1 - 2 tab PO .q4-6h PRN pain, for 07/08/23 07/12/23 Rx mg tablet (Percocet) initial therapy, max 6 tabs per day #15 tabs semaglutide 1 mg/dose (4 mg/3 mL) 0 mg subcut WE 07/08/23 07/12/23 History subcutaneous pen injector (Ozempic) Patient History Medical History Depression Morgan's thyroiditis History of COVID-09 SEPTEMBER 2022>RESOLVED Hypertension Hypothyroidism Morbid obesity with BMI of 40.0-44.9, adult Postoperative bile leak Surgical History History of carpal tunnel release left History of foot surgery plantar warts removed History of tonsillectomy History of wisdom tooth extraction under local Hx laparoscopic cholecystectomy (07/08/23) Laparoscopic Cholecystectomy(Not Applicable) - Rosas Olivarez DO, FACS Family History Mother Family history of reaction to anesthesia difficulty waking Social History Smoking Status: Never smoker Tobacco Type: Cigarettes Second Hand Exposure: No; Do You Dip or Chew Tobacco: No; Hx Alcohol Use: No Hx Substance Use: No Preferred Language: [place] Citizen Communication Ability: Effective Visual Impairment: No Limitations Care Partner Required: No Beliefs That Will Affect Care: None Current Living Situation: Family Current Living Situation Comment: Lives with children Other Information That Helps Us Care for You: No Feels Safe at Home: Yes Safety Concerns: Feels Safe At This Time Assistive Devices: None Review of Systems Review of Systems: All systems reviewed & are unremarkable except as noted in HPI & below Physical Exam Constitutional: WD/WN, vitals as above well groomed and cooperative; + uncomfortable Eyes: PERRL, conjunctivae normal, anicteric sclerae ENMT: external ear and nose normal, oropharynx normal Respiratory: normal respiratory effort, lungs clear to auscultation Cardiovascular: RRR, no murmur, no edema Gastrointestinal (Abdomen): Soft, TTP, BS hypoactive Skin: no rashes, warm and dry no jaundice Psychiatric: A+Ox3, euthymic affect Lymphatic: no lymphedema Results & Data Vital Signs (Past 12 Hours) Vital Signs Pulse Pulse Resp BP Pulse Ox O2 Del Method 07/13/23 11:42 83 18 138/90 95 Room Air 07/13/23 08:00 85 22 131/89 94 Room Air 07/13/23 06:00 72 18 141/95 H 91 Room Air 07/13/23 04:47 74 07/13/23 04:00 79 16 142/92 H 91 Room Air 07/13/23 02:26 76 18 169/101 H 91 Room Air Diagnostic Findings [place], [place] [phone] Nuclear Medicine Report Patient:MINDY LOUIE Admit Date:07/13/23 MR#:[id number] Address1:[address] Acct ID:[id number] Address2: Date:1975 [facility] Zip:[place] [address] Age:47 Location:[facility] Sex:F Room/Bed:[facility] 1-11 Att Phy:Macias-Prosper, Kennita L., DO Diagnosis:POST-OP PAIN Lin Phy:John Baker DO Service Date:07/13/23 Fam Phy: Interpreting Phy:Norbert Henley MDAdmit Phy:Marvin Cooper DO Ordering Phy:Chaz Mcnair PA-C cc: ~ NUCLEAR HEPATOBILIARY SCAN CLINICAL HISTORY: Recent cholecystectomy. Clinical concern for bile leak. COMPARISON STUDY: Abdominal CT and ultrasound dated 07/12/2023. TECHNIQUE: Dynamic images of the liver and anterior abdomen were obtained every 5 minutes for a total of 35 minutes following the IV administration of 5.2 mCi of technetium 99m Mebrofenin. An additional image was acquired at 60 minutes after the patient laid in the right lateral decubitus position. FINDINGS: The hepatobiliary scan shows prompt and homogeneous hepatic uptake. There is visualized activity within the intra and extrahepatic biliary tree at 10 minutes. There is normal biliary to bowel transit, with small bowel visualized by 20 minutes. There is no pooling of tracer in the gallbladder fossa. There is indeterminate accumulation of tracer below the left lobe of the liver. On the 60 minute images are also also tracer seen along the inferior aspect of the right lobe. IMPRESSION: 1. Status post cholecystectomy. 2. There is abnormal pooling of tracer below the left lobe of the liver on the initial images. This appears to move inferior to the right lobe on the delayed 60 minute after the patient laid right side down. Findings are highly suspicious for bile leak.
--- NOTE | 2023-07-13 13:55 | Anesthesiology Consultation ---
Date of Service July 13, 2023 Assessment & Plan Chart Review Chart Review: entry level lab technician initiated History Surgery Operation Date: 07/13/23 13:40 Proposed Procedures p Endoscopic Retrograde Cholangiopancreatogram - Lisa Castro DO Height/Weight Height: 5 ft 3 in Weight: 87 kg Allergies Allergy/AdvReac Type Severity Reaction Status Date / Time chlorzoxazone Allergy Severe THROAT & Verified 07/12/23 22:42 FACIAL SWELLING ciprofloxacin Allergy Intermediate Hives Verified 07/12/23 22:42 ferrous fumarate Allergy Intermediate Hives Verified 07/12/23 22:42 [From Prenatabs FA] folic acid Allergy Intermediate Hives Verified 07/12/23 22:42 [From Prenatabs FA] vitamins with Allergy Intermediate Hives Verified 07/12/23 22:42 calcium no.78 [From Prenatabs FA] Quinolones Allergy Intermediate Hives Verified 07/12/23 22:42 Medications Home Medications Medication Instructions Recorded Confirmed Last Taken bupropion HCl 150 mg 24 hr tablet, 150 mg PO QAM 12/30/21 07/12/23 07/07/23 extended release (Wellbutrin XL) bupropion HCl 300 mg 24 hr tablet, 300 mg PO QAM 12/30/21 07/12/23 07/07/23 extended release (Wellbutrin XL) duloxetine 60 mg capsule,delayed 60 mg PO BID 12/30/21 07/12/23 07/07/23 release (Cymbalta) levothyroxine 125 mcg capsule 125 mcg PO QAM 12/30/21 07/12/23 07/07/23 losartan 100 mg tablet 100 mg PO QAM 11/27/22 07/12/23 07/07/23 pantoprazole 40 mg tablet,delayed 40 mg PO DAILY #90 tabs 06/03/23 07/12/23 07/07/23 release (Protonix) ergocalciferol (vitamin D2) 1,250 50,000 unit PO WE 07/08/23 07/12/23 07/03/23 mcg (50,000 unit) capsule (Vitamin D2) oxycodone-acetaminophen 5 mg-325 1 - 2 tab PO .q4-6h PRN pain, for 07/08/23 07/12/23 07/12/23 13:30 mg tablet (Percocet) initial therapy, max 6 tabs per day #15 tabs semaglutide 1 mg/dose (4 mg/3 mL) 0 mg subcut WE 07/08/23 07/12/23 07/01/23 subcutaneous pen injector (Ozempic) Active Medications Generic Name Dose Route Start Last Admin Trade Name [place] PRN Reason Stop Dose Admin Bupropion HCl 150 mg 07/13/23 09:00 07/13/23 07:59 Bupropion Xl 150 Mg Tabcr PO 08/12/23 08:59 150 mg QAM CARLOS Administration Bupropion HCl 300 mg 07/13/23 09:00 07/13/23 07:59 Bupropion Xl 300 Mg Tabcr PO 08/12/23 08:59 300 mg QAM CARLOS Administration Duloxetine HCl 60 mg 07/13/23 09:00 07/13/23 08:00 Duloxetine Hcl 60 Mg Cap PO 08/12/23 08:59 60 mg BID CARLOS Administration Heparin Sodium (Porcine) 5,000 units 07/13/23 09:00 07/13/23 08:00 Heparin Sod 5,000 Unit/0.5 Ml Vial SQ 08/12/23 08:59 Not Given Q12 CARLOS Lactated Ringer's 1,000 mls @ 75 mls/hr 07/13/23 05:39 07/13/23 06:26 Lr IV 08/12/23 05:38 75 mls/hr .[id number] CARLOS Administration Pantoprazole Sodium 40 mg/ 10 mls @ 5 mls/min 07/13/23 11:00 07/13/23 11:38 Syringe IV 08/12/23 10:59 5 mls/min DAILY@1100 CARLOS Administration Ketorolac Tromethamine 15 mg 07/13/23 05:39 07/13/23 09:23 Ketorolac Tromethamine 15 Mg/Ml Vial IV 07/18/23 05:38 15 mg Q6H PRN Administration Pain Levothyroxine Sodium 125 mcg 07/13/23 06:30 07/13/23 08:00 Levothyroxine Sodium 125 Mcg Tablet PO 08/12/23 06:29 125 mcg DAILYBB CARLOS Administration Losartan Potassium 100 mg 07/13/23 09:00 07/13/23 08:00 Losartan Potassium 50 Mg Tab PO 08/12/23 08:59 100 mg QAM CARLOS Administration Morphine Sulfate 3 mg 07/13/23 05:39 07/13/23 11:51 Morphine Sulfate 4 Mg/Ml 1 Ml Carp\Vial IV 07/27/23 05:38 3 mg Q3H PRN Administration Severe Pain (Scale 7, 8, 9,10) Past Medical History Medical History Depression Morgan's thyroiditis History of COVID-09 SEPTEMBER 2022>RESOLVED Hypertension Hypothyroidism Morbid obesity with BMI of 40.0-44.9, adult Postoperative bile leak Past Family History Family History Mother Family history of reaction to anesthesia difficulty waking Past Surgical History Surgical History History of carpal tunnel release left History of foot surgery plantar warts removed History of tonsillectomy History of wisdom tooth extraction under local Hx laparoscopic cholecystectomy (07/08/23) Laparoscopic Cholecystectomy(Not Applicable) - Rosas Olivarez DO, FACS Social History Smoking Status: Never smoker tobacco type: cigarettes Do You Dip or Chew Tobacco: No Hx Alcohol Use: No Hx Substance Use: No substance use type: does not use Physical Exam Vital Signs Last Vital Signs Temp 98.4 F 07/12/23 16:03 Pulse 83 07/13/23 11:42 Resp 18 07/13/23 11:42 BP 138/90 07/13/23 11:42 Pulse Ox 95 07/13/23 11:42 O2 Del Method Room Air 07/13/23 11:42 Testing Laboratory Results 07/13/23 08:08 07/13/23 08:08 Urine Color Dark Yellow 07/12/23 Unknown Urine Appearance Clear (Clear) 07/12/23 Unknown Urine pH 7.5 (4.5-7.5) 07/12/23 Unknown Ur Specific [place] 1.020 (1.000-1.030) 07/12/23 Unknown Urine Protein Trace (Negative) H 07/12/23 Unknown Urine Glucose (UA) Negative (Negative) 07/12/23 Unknown Urine Ketones Trace (Negative) H 07/12/23 Unknown Urine Nitrite Negative (Negative) 07/12/23 Unknown Ur Leukocyte Esterase Negative (Negative) 07/12/23 Unknown Urine WBC (Auto) 1-5 /hpf (0-5) 07/12/23 Unknown Urine RBC (Auto) 0-4 /hpf (0-4) 07/12/23 Unknown U Hyaline Cast (Auto) 1-5 /lpf (0-5) 07/12/23 Unknown U Epithel Cells (Auto) >30 /lpf (0-5) H 07/12/23 Unknown Urine Bacteria (Auto) Negative (Negative) 07/12/23 Unknown Electrocardiogram Date: 07/12/23 Findings: + NSR @ (67 bpm)
[2023-07-13] MEDS ORDERED: fentaNYL citrate PF 100 MCG/2 ML VIAL IV PRN (14:40)
[2023-07-13] MEDS ORDERED: ePHEDrine sulfate 50 MG/ML AMP IV PRN ×2 (14:40→17:02)
[2023-07-13] MEDS ORDERED: ATROPINE SULFATE 0.1 MG/ML 10ML SYR IV PRN ×2 (14:40→17:02)
[2023-07-13] MEDS: AMPICILLIN/SULBACTAM SOD 3,000 MG in 0.9 % SODIUM CHLORIDE 100 ML IV SCH ×2 (14:42→19:59)
[2023-07-13] MEDS ORDERED: LIDOCAINE 2% 2 ML VIAL/AMP(20MG/ML) INFIL ONE (15:21)
[2023-07-13] MEDS ORDERED: SUCCINYLCHOLINE CHLORIDE 20 MG/ML 10 ML VIAL IV ONE (15:21)
[2023-07-13] MEDS ORDERED: PROPOFOL IV EMULSION 10 MG/ML 20 ML VIAL IV ONE (15:21)
[2023-07-13 15:25] LABS: Pregnancy Test, Serum Negative (Negative)
[2023-07-13] MEDS ORDERED: MIDAZOLAM HCL 1 MG/ML 2ML VIAL ONE (15:26)
[2023-07-13] MEDS ORDERED: fentaNYL citrate PF 100 MCG/2 ML VIAL ONE (15:26)
[2023-07-13] MEDS ORDERED: ONDANSETRON INJ 2 MG/ML 2 ML VIAL ONE (16:16)
[2023-07-13] MEDS ORDERED: DEXAMETHASONE SOD INJ 4 MG/ML VIAL ONE (16:17)
[2023-07-13] MEDS ORDERED: LABETALOL HCL IV 5 MG/ML 20ML IV ONE ×2 (16:31→17:05)
--- NOTE | 2023-07-13 16:34 | GI REPORT ---
Patient Name: Zenaida Villalta Procedure Date: 07/13/2023 3:09 PM Date of : 1975 Admit Type: Inpatient Age: 47 Gender: Female Attending MD: Lisa Castro DO, Procedure: ERCP Providers: Lisa Castro DO Referring MD: Marvin Trujillo Do, Rosas Olivarez Do Indications: Abnormal hepatobiliary scintigraphy, Treatment of bile leak Medicines: General Anesthesia Complications: No immediate complications. Estimated blood loss: Minimal. Estimated Blood Loss: Estimated blood loss was minimal. Procedure: Pre-Anesthesia Assessment: - Prior to the procedure, a History and Physical was performed, and patient medications, allergies and sensitivities were reviewed. The patient's tolerance of previous anesthesia was reviewed. - The risks and benefits of the procedure and the sedation options and risks were discussed with the patient. All questions were answered and informed consent was obtained. - Patient identification and proposed procedure were verified prior to the procedure by the physician, the nurse and the electric crane operator. The procedure was verified in the procedure room. - Pre-procedure physical examination revealed no contraindications to sedation. - ASA Grade Assessment: III - A patient with severe systemic disease. - After reviewing the risks and benefits, the patient was deemed in satisfactory condition to undergo the procedure. - The anesthesia plan was to use general anesthesia. - Immediately prior to administration of medications, the patient was re-assessed for adequacy to receive sedatives. - The heart rate, respiratory rate, oxygen saturations, blood pressure, adequacy of pulmonary ventilation, and response to care were monitored throughout the procedure. - The physical status of the patient was re-assessed after the procedure. After obtaining informed consent, the scope was passed under direct vision. Throughout the procedure, the patient's blood pressure, pulse, and oxygen saturations were monitored continuously. The Duodenoscope was introduced through the mouth, and advanced to the duodenum and used to inject contrast into the bile duct and ventral pancreatic duct. The ERCP was accomplished without difficulty. The patient tolerated the procedure well. Findings: A workforce management consultant film of the abdomen was obtained. Surgical clips, consistent with a previous cholecystectomy, were seen in the area of the right upper quadrant of the abdomen. The esophagus was successfully intubated under direct vision without detailed examination of the pharynx, larynx, and associated structures, and upper GI tract. The upper GI tract was grossly normal. The major papilla was normal. The ventral pancreatic duct was inadvertently cannulated with the short-nosed traction sphincterotome and guidewire without any complications. The wire was left in place to aid in biliary cannulation with a double wire technique and later place a prophylactic pancreatic stent. The bile duct was deeply cannulated with the short-nosed traction sphincterotome and guidewire. Contrast was injected. I personally interpreted the bile duct images. Contrast extended to the hepatic ducts. Extravasation of contrast originating from the cystic duct was observed. Biliary sphincterotomy was made with a monofilament Fusion OMNI sphincterotome using ERBE electrocautery. There was no post-sphincterotomy bleeding. To discover objects, the biliary tree was swept with an 11.5 mm balloon starting at the bifurcation. Nothing was found. One 5 Fr by 7 cm pancreatic stent with a full external pigtail and no internal flaps was placed 7 cm into the ventral pancreatic duct. Clear fluid flowed through the stent. The stent was in good position. One 10 Fr by 8 cm covered metal stent (Alpha Viabil [id number], SN [id number]) was placed 7.5 cm into the common bile duct. Bile flowed through the stent. The stent was in good position. The endoscope was withdrawn from the patient. Indomethacin 100 mg was given via suppository to decrease the risk of post-ERCP pancreatitis (PEP). Impression: - The major papilla appeared normal. - A bile leak was found. - A biliary sphincterotomy was performed. - One pancreatic stent was placed into the ventral pancreatic duct. - One covered metal stent was placed into the common bile duct. - Indomethacin given to decrease risk of post-ERCP pancreatitis. Recommendation: - Return patient to [facility] for ongoing care. - Clear liquid diet today. - Observe patient's clinical course following today's ERCP with therapeutic intervention. - Repeat ERCP in 6 weeks to remove stent. Lisa Castro D.O. Lisa Castro, 07/13/2023 4:34:03 PM This report has been signed electronically. Note Initiated On: 07/13/2023 3:09 PM Number of Addenda: 0 I attest to the content of the Intraoperative Record and orders documented therein, exceptions below {[id number]}
--- NOTE | 2023-07-13 16:35 | Post Operative Brief Note ---
Immediate Post Op Note v1 Date of Surgery July 13, 2023 Pre & Post Diagnosis Operation Date: 07/13/23 13:40 Pre-Op Diagnosis: POST-OP PAIN, bile leak I identified the patient and participated in the time-out.: Yes Procedure Operation Date: 07/13/23 13:40 ERCP with Sphincterotomy Bilairy stent placement Pancreatic stent placement Surgeon Lisa Castro, DO Maintenance Assistant none Estimated Blood Loss 0 Findings See Below (Bile leak from the cystic duct remanent)
--- NOTE | 2023-07-13 16:37 | Communication Note ---
Date of Service: July 13, 2023 The patient underwent ERCP today for treatment of a bile leak. She was found to have leakage of bile from the cystic duct remnant. This was treated with biliary sphincterotomy and placement of a covered metal stent. A prophylactic pancreatic stent was also placed due to inadvertent cannulation of the pancreatic duct during today's procedure. Recommendations Broad-spectrum antibiotic coverage for total of 10 days Avoid use of Nonsteroidals for 5 days continue IV hydration overnight, patient may have clear liquids from a GI perspective Repeat ERCP for stent removal in 6 to 8 weeks Please call the GI service with any additional questions
--- NOTE | 2023-07-13 16:57 | Fluoroscopy Report ---
INTRAOPERATIVE RADIOGRAPHS CLINICAL HISTORY: ERCP Fluoro time: 37 seconds Ka,r: 10.66 mGy FINDINGS: 4 spot fluoroscopic views of the right upper quadrant from an ERCP procedure are correlated with nuclear hepatobiliary scan dated 07/13/2023. Cholecystectomy clips are noted. A catheter is adva nced into the common bile duct which smoothly opacifies. There is no intrahepatic biliary ductal dila tation. A bile duct stent is likely in place on the final image. IMPRESSION: Intraoperative ERCP images as above. See operative report for detailed findings. Electronically signed by: Norbert Henley M.D. 07/13/2023 4:55 PM
[2023-07-13] MEDS: LABETALOL HCL IV 5 MG/ML 20ML IV PRN ×3 (17:07→17:32)
--- NOTE | 2023-07-13 17:21 | Electrocardiogram Report ---
Test Reason : Blood Pressure : / mmHG Vent. Rate : 067 BPM Atrial Rate : 067 BPM P-R Int : 158 ms QRS Dur : 080 ms QT Int : 412 ms P-R-T Axes : 051 029 065 degrees QTc Int : 435 ms Normal sinus rhythm Normal ECG When compared with ECG of 08-JUL-2023 02:20, Vent. rate has decreased BY 33 BPM Confirmed by Jose Higgins ([id number]) on 07/13/2023 5:21:38 PM Referred By: REFERRED SELF Confirmed By:Jose Higgins
--- NOTE | 2023-07-13 18:00 | Anesthesiology Progress Note ---
Date of Service July 13, 2023 Anesthesia Post Procedure Vital Signs Vital Signs: Temp Pulse Pulse Pulse Resp BP BP 07/13/23 17:40 98.4 F 80 20 170/103 H 07/13/23 17:30 75 19 176/102 H 07/13/23 17:32 72 176/102 H 07/13/23 17:20 78 18 165/108 H 07/13/23 17:16 74 169/105 H 07/13/23 17:10 77 18 161/102 H 07/13/23 17:07 76 182/110 H 07/13/23 17:00 75 16 171/106 H 07/13/23 16:50 78 18 160/107 H 07/13/23 16:39 96.8 F L 83 18 155/107 H 07/13/23 14:22 98.1 F 68 22 197/102 H 07/13/23 11:42 83 18 138/90 07/13/23 08:00 85 22 131/89 07/13/23 06:00 72 18 141/95 H 07/13/23 04:47 74 07/13/23 04:00 79 16 142/92 H 07/13/23 02:26 76 18 169/101 H 07/12/23 22:43 86 07/13/23 00:11 66 20 169/105 H 07/12/23 22:18 83 20 169/105 H 07/12/23 20:30 78 20 163/89 H Pulse Ox O2 Del Method O2 Flow Rate 07/13/23 17:40 96 Nasal Cannula 2 07/13/23 17:30 96 Nasal Cannula 2 07/13/23 17:32 07/13/23 17:20 96 Nasal Cannula 2 07/13/23 17:16 07/13/23 17:10 95 Nasal Cannula 2 07/13/23 17:07 07/13/23 17:00 95 Room Air 07/13/23 16:50 94 Oxymask 3 07/13/23 16:39 95 Oxymask 5 07/13/23 14:22 95 Room Air 07/13/23 11:42 95 Room Air 07/13/23 08:00 94 Room Air 07/13/23 06:00 91 Room Air 07/13/23 04:47 07/13/23 04:00 91 Room Air 08/22/23 02:26 91 Room Air 07/12/23 22:43 07/13/23 00:11 95 Room Air 07/12/23 22:18 97 Room Air 07/12/23 20:30 99 Room Air Pain Intensity Abdomen: Pain Intensity: 8 Transfer of Care Handoff Completed per policy Notes Mental Status: alert / awake / arousable and participated in evaluation Patient Amnestic to Procedure: Yes Nausea / Vomiting: adequately controlled Pain: adequately controlled Airway Patency, RR, SpO2: stable & adequate BP & HR: stable & adequate Hydration State: stable & adequate Anesthetic Complications: no major complications apparent and Pt Satisfied with anesthetic care
[2023-07-14] MEDS: AMPICILLIN/SULBACTAM SOD 3,000 MG in 0.9 % SODIUM CHLORIDE 100 ML IV SCH ×4 (01:40→20:45)
[2023-07-14] MEDS: LEVOTHYROXINE SODIUM 125 MCG TABLET PO SCH (05:57)
[2023-07-14] MEDS: LACTATED RINGER'S 1,000 ML IV SCH (05:57)
[2023-07-14 06:26] LABS: Basophils # (auto) 0.01 K/uL (0-0.2); Basophils % (auto) 0.2 %; Eosinophils # (auto) 0.01 K/uL (0-0.50); Eosinophils % (auto) 0.2 %; Hematocrit (blood only) 36.9 % (37.0-47.0); Hemoglobin 12.7 g/dl (12.0-16.0); Immature Granulocytes # (auto) 0.01 K/uL (0.01-0.20); Immature Granulocytes % (auto) 0.2 %; Lymphocytes # (auto) 0.67 K/uL (1.2-3.4); Lymphocytes % (auto) 12.2 %; Mean Corpuscular Hemoglobin 30.2 pg (25.0-34.0); Mean Corpuscular Hgb Conc 34.4 g/dL (32.0-36.0); Mean Corpuscular Volume 87.6 fL (80.0-100.0); Mean Platelet Volume 9.3 fL (9.4-12.4); Monocytes # (auto) 0.25 K/uL (0.11-0.59); Monocytes % (auto) 4.6 %; Neutrophils # (auto) 4.53 K/uL (1.40-6.50); Neutrophils % (auto) 82.6 %; Platelet Count 270 K/uL (130-400); RDW Coefficient of Variation 13.1 % (11.5-14.5); RDW Standard Deviation 41.8 fL (36.4-46.3); Red Blood Count 4.21 M/uL (4.20-5.40); White Blood Count 5.48 K/ul (4.8-10.8)
[2023-07-14 07:18] LABS: Albumin Globulin Ratio 1.4 (0.9-2); Albumin Level 3.7 gm/dl (3.4-5.0); BUN Creatinine Ratio 11.7 (10-20); Bilirubin,Total 0.7 mg/dl (0.2-1.0); Calcium 9.2 mg/dl (8.6-10.3); Creatinine Clr Calc Pharmacy 122.5 ml/min; Est GFR (African American) 126.7 ml/min; Est GFR (Non-African American) 109.3 ml/min; Globulin 2.6 gm/dl (2.5-4.0); Potassium 4.2 mmol/L (3.5-5.1); Total Protein 6.3 gm/dl (6.0-8.3)
[2023-07-14] MEDS: DULoxetine HCL 60 MG CAP PO SCH ×2 (07:51→21:40)
[2023-07-14] MEDS: HEPARIN SOD 5,000 UNIT/0.5 ML VIAL SQ SCH ×2 (07:51→21:40)
[2023-07-14] MEDS: buPROPion XL 300 MG TABCR PO SCH (07:52)
[2023-07-14] MEDS: buPROPion XL 150 MG TABCR PO SCH (07:52)
[2023-07-14] MEDS: LOSARTAN POTASSIUM 50 MG TAB PO SCH (07:52)
--- NOTE | 2023-07-14 08:42 | Gastroenterology Progress Note ---
Date of Service July 14, 2023 Assessment & Plan (1) Postoperative bile leak: Plan: Pt is a 47 yo female s/p lap flex on 07/08, who presented with upper abd pain and LFTs elevation, noted to have bile leak on HIDA scan. ERCP completed on 07/13, bile leak found, pancreatic and biliary stents placed. LFTs improving. She is having less abd pain, no n/v. - Advance diet as tolerated - Symptomatic management - Trend LFTs - Cover w antibiotics x 10 days - Avoid NSAIDs for 7 days after sphincterectomy - Repeat ERCP in 6-8 weeks for stent removal - GI to sign off; pls recall prn Admission and Anticipated Discharge Date Admission Date: July 13, 2023 Subjective Pt having less abd pain, no n/v, tolerated CL diet. Review of Systems Review of Systems: All systems reviewed & are unremarkable except as noted in HPI & below Physical Exam Constitutional: WD/WN, vitals as above well groomed, cooperative and comfortable Eyes: PERRL, conjunctivae normal, anicteric sclerae ENMT: external ear and nose normal, oropharynx normal Respiratory: normal respiratory effort, lungs clear to auscultation Cardiovascular: RRR, no murmur, no edema Gastrointestinal (Abdomen): Mild TTP RUQ, soft, BS hypoactive Skin: no rashes, warm and dry no jaundice Psychiatric: A+Ox3, euthymic affect Lymphatic: no lymphedema Results & Data Vital Signs (Past 12 Hours) Vital Signs Temp Pulse Resp BP Pulse Ox O2 Del Method 07/14/23 07:28 36.6 C 85 16 130/76 94 Room Air 07/14/23 02:49 36.5 C 79 18 133/81 93 Room Air 07/13/23 23:13 36.7 C 64 18 150/83 H 94 Room Air 07/13/23 21:00 36.6 C 71 18 148/83 H 94 Room Air
--- NOTE | 2023-07-14 08:46 | Surgery Progress Note ---
Date of Service July 14, 2023 Assessment & Plan (1) Postoperative bile leak: Plan: Status post lap flex complicated by bile leak from cystic duct remnant, treated with ERCP yesterday. Much improved Advance diet as tolerated Discharge to home this afternoon Follow-up as already scheduled, continue wound care instructions and activity restrictions 10 days antibiotic Avoid NSAIDs Follow-up as scheduled in 1 to 2 weeks in the general surgery clinic, call with questions or concerns Follow-up with GI for stent removal in 6 weeks Return precautions given (2) Hx laparoscopic cholecystectomy: Admission and Anticipated Discharge Date Admission Date: July 13, 2023 Subjective Status post lap flex admitted with suspected bile leak, ERCP yesterday confirmed very small leak from the cystic duct remnant treated with sphincterotomy and stent placement. Today she is feeling much better, a little sore but not having the pain she was having yesterday. Physical Exam Constitutional: WD/WN, vitals as above Gastrointestinal (Abdomen): Percussion/Palpation: + abdomen tender (Minimal tenderness to palpation in the right upper quadrant) and abdomen soft; no guarding, abdomen not rigid and no hepatosplenomegaly Results & Data Vital Signs (Past 12 Hours) Vital Signs Temp Pulse Resp BP Pulse Ox O2 Del Method 07/14/23 07:28 36.6 C 85 16 130/76 94 Room Air 07/14/23 02:49 36.5 C 79 18 133/81 93 Room Air 07/13/23 23:13 36.7 C 64 18 150/83 H 94 Room Air 07/13/23 21:00 36.6 C 71 18 148/83 H 94 Room Air Laboratory Results Laboratory Results - last 24 hr 07/13/23 07/13/23 07/13/23 08:08 08:08 14:48 WBC 5.71 RBC 4.17 L Hgb 12.7 Hct 38.1 MCV 91.4 MCH 30.5 MCHC 33.3 RDW Std Deviation 45.5 RDW Coeff of Iker 13.6 Plt Count 256 MPV 9.3 L Immature Gran % (Auto) 0.2 Neut % (Auto) 71.4 Lymph % (Auto) 19.1 [place] % (Auto) 6.5 Eos % (Auto) 2.6 Baso % (Auto) 0.2 Neut # (Auto) 4.08 Lymph # (Auto) 1.09 L [place] # (Auto) 0.37 Eos # (Auto) 0.15 Baso # (Auto) 0.01 Immature Gran # (Auto) 0.01 Sodium 142 Potassium 3.4 L Chloride 109 H Carbon Dioxide 29 Anion Gap 4 BUN 6 Creatinine 0.61 Est Cr Clr Drug Dosing 121.8 Est GFR ( Amer) 126.9 Est GFR (Non-Af Amer) 109.5 BUN/Creatinine Ratio 9.8 L Glucose 88 Calcium 8.9 Total Bilirubin 0.6 AST 24 ALT 99 H Alkaline Phosphatase 113 H Total Protein 6.2 D Albumin 3.7 Globulin 2.5 Albumin/Globulin Ratio 1.5 Lipase 13 HCG, Qual Negative 07/14/23 07/14/23 05:54 05:54 WBC 5.48 RBC 4.21 Hgb 12.7 Hct 36.9 L MCV 87.6 MCH 30.2 MCHC 34.4 RDW Std Deviation 41.8 RDW Coeff of Iker 13.1 Plt Count 270 MPV 9.3 L Immature Gran % (Auto) 0.2 Neut % (Auto) 82.6 Lymph % (Auto) 12.2 [place] % (Auto) 4.6 Eos % (Auto) 0.2 Baso % (Auto) 0.2 Neut # (Auto) 4.53 Lymph # (Auto) 0.67 L [place] # (Auto) 0.25 Eos # (Auto) 0.01 Baso # (Auto) 0.01 Immature Gran # (Auto) 0.01 Sodium 141 Potassium 4.2 D Chloride 106 Carbon Dioxide 29 Anion Gap 6 BUN 7 Creatinine 0.60 Est Cr Clr Drug Dosing 122.5 Est GFR ( Amer) 126.7 Est GFR (Non-Af Amer) 109.3 BUN/Creatinine Ratio 11.7 Glucose 120 H Calcium 9.2 Total Bilirubin 0.7 AST 21 ALT 78 H Alkaline Phosphatase 118 H Total Protein 6.3 Albumin 3.7 Globulin 2.6 Albumin/Globulin Ratio 1.4 Lipase HCG, Qual PG Care Time/CCT Total # of Minutes Spent Total Time Spent with Patient: Total time spent is greater than 50% in coordination of care (as documented) at patient's floor/unit and/or counseling patient: Coding Level of Care Code 87010 SUB INP/OBS CARE 1/25MIN Diagnoses Postoperative bile leak K91.89; K83.8 Hx laparoscopic cholecystectomy Z90.49
[2023-07-14] MEDS ORDERED: ERGOCALCIFEROL 50,000 UNITS 1250 MCG CAP PO SCH (09:00)
[2023-07-14] MEDS: PANTOprazole 40 MG in SYRINGE 0 ML IV SCH (12:50)
[2023-07-14] MEDS: MoRPHine SULFATE 4 MG/ML 1 ML CARP\\VIAL IV PRN ×2 (13:23→19:28)
[2023-07-14] MEDS ORDERED: oxyCODONE HCL IR 5 MG TAB (IMMEDIATE RELEASE) PO PRN (15:14)
[2023-07-14] MEDS: ACETAMINOPHEN 1,000 MG/100 ML VIAL IV SCH ×2 (15:24→22:35)
[2023-07-14] MEDS ORDERED: HYDROmorphone INJ 0.5 MG/0.5 ML SYR IV PRN (22:40)
--- NOTE | 2023-07-14 23:41 | Communication Note ---
Date of Service: July 14, 2023 The patient was visited at the bedside at approximate 11:00 PM on 07/14/2023. Prior to my evaluation at the bedside I was notified by nursing staff the daniela swartz reported some severe abdominal pain after receiving intravenous morphine. I did visit with the patient at the bedside and she noted she had significant pain greatest in the epigastric area that occurs in an on/off fashion. At the time of my visit with the patient she appeared to be resting comfortably in bed and she did not appear to be in any distress. Her vital signs indicated she was normotensive and not tachycardic. She was noted to be afebrile with a pulse ox of 94% on room air. She was not tachypneic. Her abdomen was nondistended and soft/nonrigid. She did have some slight pain with palpation in the epigastric area at the time of my exam. (The amount of pain elicited at the time of my exam this evening was markedly decreased from what I noted at the time of admission on 07/12/2023.) Due to the patient reporting pain when she had morphine administered I have discontinued this medication and switched to as needed Dilaudid. Of note, the patient cannot have Toradol at the request of gastroenterology due to her recent ERCP. I discussed with the nurse who did not voice any additional concerns at this time. We will continue to monitor her while she is hospitalized. Patient was revisited at the bedside at approximately 5:10 AM. She does not report any worsening abdominal pain. I discussed with the patient's nurse attending the patient and she has not required any additional analgesics other than Tylenol throughout the evening and since my last visit.
[2023-07-15] MEDS: AMPICILLIN/SULBACTAM SOD 3,000 MG in 0.9 % SODIUM CHLORIDE 100 ML IV SCH ×4 (01:52→19:31)
[2023-07-15] MEDS: LEVOTHYROXINE SODIUM 125 MCG TABLET PO SCH (06:38)
[2023-07-15] MEDS: ACETAMINOPHEN 1,000 MG/100 ML VIAL IV SCH ×3 (06:42→22:49)
[2023-07-15 07:38] LABS: Basophils # (auto) 0.01 K/uL (0.00-0.20); Basophils % (auto) 0.1 %; Eosinophils # (auto) 0.17 K/uL (0.00-0.50); Eosinophils % (auto) 2.4 %; Hematocrit (blood only) 40.1 % (37.0-47.0); Hemoglobin 13.6 g/dl (12.0-16.0); Immature Granulocytes # (auto) 0.02 K/uL (0.01-0.20); Immature Granulocytes % (auto) 0.3 %; Lymphocytes # (auto) 0.55 K/uL (1.20-3.40); Lymphocytes % (auto) 7.6 %; Mean Corpuscular Hemoglobin 30.6 pg (25.0-34.0); Mean Corpuscular Hgb Conc 33.9 g/dL (32.0-36.0); Mean Corpuscular Volume 90.3 fL (80.0-100.0); Mean Platelet Volume 9.7 fL (9.4-12.4); Monocytes # (auto) 0.24 K/uL (0.11-0.59); Monocytes % (auto) 3.3 %; Neutrophils % (auto) 86.3 %; Platelet Count 337 K/uL (130-400); RDW Coefficient of Variation 13.6 % (11.5-14.5); RDW Standard Deviation 44.7 fL (36.4-46.3); Red Blood Count 4.44 M/uL (4.20-5.40); White Blood Count 7.19 K/ul (4.8-10.8)
[2023-07-15] MEDS: DULoxetine HCL 60 MG CAP PO SCH ×2 (07:58→19:34)
[2023-07-15] MEDS: LOSARTAN POTASSIUM 50 MG TAB PO SCH (07:59)
[2023-07-15] MEDS: buPROPion XL 300 MG TABCR PO SCH (07:59)
[2023-07-15] MEDS: buPROPion XL 150 MG TABCR PO SCH (07:59)
[2023-07-15] MEDS: HEPARIN SOD 5,000 UNIT/0.5 ML VIAL SQ SCH ×2 (08:00→19:34)
[2023-07-15 08:03] LABS: Albumin Globulin Ratio 1.4 (0.9-2); Albumin Level 3.7 gm/dl (3.4-5.0); BUN Creatinine Ratio 10.6 (10-20); Bilirubin,Total 0.7 mg/dl (0.2-1.0); Calcium 8.9 mg/dl (8.6-10.3); Creatinine Clr Calc Pharmacy 111.4 ml/min; Est GFR (African American) 122.8 ml/min; Est GFR (Non-African American) 105.9 ml/min; Globulin 2.7 gm/dl (2.5-4.0); Potassium 3.7 mmol/L (3.5-5.1); Total Protein 6.4 gm/dl (6.0-8.3)
--- NOTE | 2023-07-15 08:36 | Surgery Progress Note ---
Date of Service July 15, 2023 Assessment & Plan (1) Postoperative bile leak: Plan: Patient is s/p lap flex on 07/08 complicated by bile leak and s/p ERCP with stenting on 07/13/23 Pt had worsening pain s/p diet advancement yesterday and was monitored overnight She continues to complain of intermittent severe pain across the upper abdomen similar to her initial presentation Today WBC 7.1, Hbg 13.6, Tb 0.7, AST 25, ALT 66, Alkp 118. Patient is afebrile, HRs 85s-110s, last BP 150/110 On exam abdomen is soft, with discomfort elicited across upper abd to palpation We will perform a CT a/p for further evaluation of patient's pain Also discussed with GI patient's symptoms and plans for CT Admission and Anticipated Discharge Date Admission Date: July 13, 2023 Supervising Physician Co-Signing Physician Notes Patient seen and examined, labs and imaging reviewed, agree with above. Status post laparoscopic cholecystectomy readmitted with postoperative cystic duct leak status post ERCP. She was doing well yesterday until she developed epigastric pain that radiated to her back. Seem to be worse with IV narcotics. Labs today were unremarkable. CT scan was ordered and showed pancreatitis and expected postoperative changes. Lipase was ordered and was elevated. On exam she is afebrile with stable vitals, her abdomen is soft, tender to palpation in the epigastrium, incisions healing well. We will treat her for her post ERCP pancreatitis by maintaining a clear liquid diet and keeping her on IV fluids. Hopeful for resolution in the next 24 hours. Discussed with GI. Subjective Patient seen and examined this AM. Apparently had worsening pain and sweats after morphine last night, similar situation happened this AM after receiving IV dilaudid. Reports her pain is similar to when she came in, describes it as a cramping across the upper abdomen, and was not managed with the IV meds and it actually got worse after the morphine + dilaudid. Patient has had some mashed potatoes and carrots yesterday, but because of increased pain after eating has not had much since. She denies any nausea/vomiting. Physical Exam Physical Exam: awake/alert, no distress Respiratory: normal respiratory effort Gastrointestinal (Abdomen): Inspection/Auscultation: abdomen not distended Percussion/Palpation: + abdomen tender (discomfort elicited across the upper abdomen ) and abdomen soft Results & Data Vital Signs (Past 12 Hours) Vital Signs Temp Pulse Pulse Resp BP Pulse Ox O2 Del Method 07/15/23 08:19 36.7 C 101 H 16 150/101 H 97 Room Air 07/15/23 07:00 36.6 C 84 18 139/89 94 Room Air 07/14/23 23:10 88 94 Room Air 07/14/23 23:00 36.8 C 92 H 20 131/85 92 Room Air PG Care Time/CCT Total # of Minutes Spent Total Time Spent with Patient: Total time spent is greater than 50% in coordination of care (as documented) at patient's floor/unit and/or counseling patient: Coding Level of Care Code None Diagnoses Postoperative bile leak K91.89; K83.8
[2023-07-15] MEDS ORDERED: OPTIRAY 320 100ml IV ONE (09:50)
[2023-07-15] MEDS: PANTOprazole 40 MG in SYRINGE 0 ML IV SCH (10:45)
--- NOTE | 2023-07-15 11:02 | CT Scan Report ---
CT OF THE ABDOMEN AND PELVIS WITH CONTRAST CLINICAL HISTORY: abdominal pain s/p stenting for bile leak COMPARISON STUDY: CT of the abdomen and pelvis and right upper quadrant ultrasound July 12, 2023. Nuclear medicine hepatobiliary scan July 13, 2023. TECHNIQUE: Following IV administration of 93 mL of Optiray, axial images of the abdomen and pelvis we re obtained from the lung bases to the proximal femurs. Images were reviewed in the axial, sagittal, and coronal planes. IV contrast was administered without complication. Automated exposure control wa s utilized for the study. A dose lowering technique was utilized adhering to the principles of ALARA . CT DOSE: 1977.73 mGy.cm FINDINGS: Trace bilateral pleural effusions are noted. Subpleural opacities favor atelectasis. There has been interval development of a small amount of pneumoperitoneum within the right upper quadrant s asiya CT of July 12, 2023. A small amount of abdominal fluid and moderate pelvic fluid has increased since prior CT. As expected, there is pneumobilia following placement of a well-positioned common bi le duct stent. A pancreatic stent is in place. There has been interval development of a small to mode rate amount of peripancreatic fluid. The pancreatic parenchyma is edematous. The pancreas enhances ho mogeneously. There is no biliary ductal dilatation. No well-defined fluid collections are present. Sp weston, adrenal glands and kidneys are unremarkable with exception of multiple subcentimeter left renal lesions which are too small to characterize. An intrauterine device is in place. There is no evidenc e for a bowel obstruction. There is colonic diverticulosis without evidence for acute diverticulitis. The right colon is mildly dilated and fluid-filled. The appendix is unremarkable. Major vasculature is patent. IMPRESSION: 1. Interval development of findings consistent with acute pancreatitis, as described above. No eviden ce for pancreatic necrosis. 2. Increase in a moderate amount of fluid within the pelvis and a small amount of fluid within the ab domen, as described above. 3. Pneumoperitoneum within the right quadrant which is likely postprocedural and related to the known bile leak. 4. Well-positioned biliary and pancreatic stents. 5. Mildly distended right colon. No evidence for a bowel obstruction. ACT 112: Negative or not required by law. Electronically signed by: Wayne Zavala M.D. 07/15/2023 11:00 AM
[2023-07-15] MEDS ORDERED: SODIUM CHLORIDE 0.9% 1,000 ML IV SCH (11:15)
[2023-07-15] MEDS: LACTATED RINGER'S 1,000 ML IV SCH ×2 (12:23→19:31)
[2023-07-16] MEDS: AMPICILLIN/SULBACTAM SOD 3,000 MG in 0.9 % SODIUM CHLORIDE 100 ML IV SCH ×2 (01:20→08:21)
[2023-07-16] MEDS: LACTATED RINGER'S 1,000 ML IV SCH ×2 (01:56→09:08)
[2023-07-16] MEDS: LEVOTHYROXINE SODIUM 125 MCG TABLET PO SCH (05:32)
[2023-07-16 07:08] LABS: Basophils # (auto) 0.01 K/uL (0.00-0.20); Basophils % (auto) 0.1 %; Eosinophils # (auto) 0.33 K/uL (0.00-0.50); Eosinophils % (auto) 4.4 %; Hematocrit (blood only) 41.9 % (37.0-47.0); Hemoglobin 14.2 g/dl (12.0-16.0); Immature Granulocytes # (auto) 0.03 K/uL (0.01-0.20); Immature Granulocytes % (auto) 0.4 %; Lymphocytes # (auto) 0.79 K/uL (1.20-3.40); Lymphocytes % (auto) 10.6 %; Mean Corpuscular Hemoglobin 30.3 pg (25.0-34.0); Mean Corpuscular Hgb Conc 33.9 g/dL (32.0-36.0); Mean Corpuscular Volume 89.3 fL (80.0-100.0); Mean Platelet Volume 9.2 fL (9.4-12.4); Monocytes # (auto) 0.36 K/uL (0.11-0.59); Monocytes % (auto) 4.8 %; Neutrophils # (auto) 5.95 K/uL (1.40-6.50); Neutrophils % (auto) 79.7 %; Platelet Count 357 K/uL (130-400); RDW Coefficient of Variation 13.2 % (11.5-14.5); RDW Standard Deviation 43.1 fL (36.4-46.3); Red Blood Count 4.69 M/uL (4.20-5.40); White Blood Count 7.47 K/ul (4.8-10.8)
[2023-07-16] MEDS: ACETAMINOPHEN 1,000 MG/100 ML VIAL IV SCH (07:17)
[2023-07-16 07:31] LABS: BUN Creatinine Ratio 10.2 (10-20); Calcium 9.5 mg/dl (8.6-10.3); Creatinine Clr Calc Pharmacy 124.6 ml/min; Est GFR (African American) 127.4 ml/min; Est GFR (Non-African American) 109.9 ml/min; Potassium 3.2 mmol/L (3.5-5.1)
[2023-07-16 07:50] LABS: Albumin Globulin Ratio 1.2 (0.9-2); Bilirubin,Total 0.8 mg/dl (0.2-1.0); Globulin 3.3 gm/dl (2.5-4.0); Total Protein 7.3 gm/dl (6.0-8.3)
[2023-07-16] MEDS: HEPARIN SOD 5,000 UNIT/0.5 ML VIAL SQ SCH (08:19)
[2023-07-16] MEDS: buPROPion XL 150 MG TABCR PO SCH (08:21)
[2023-07-16] MEDS: buPROPion XL 300 MG TABCR PO SCH (08:21)
[2023-07-16] MEDS ORDERED: POTASSIUM CHLORIDE CRTAB 20 MEQ TABCR PO STA (08:22)
[2023-07-16] MEDS: LOSARTAN POTASSIUM 50 MG TAB PO SCH (08:22)
[2023-07-16] MEDS: DULoxetine HCL 60 MG CAP PO SCH (08:22)
--- NOTE | 2023-07-16 09:22 | Surgery Progress Note ---
Date of Service July 16, 2023 Assessment & Plan (1) Postoperative bile leak: Plan: Patient sitting up in bed Reports is feeling better than yesterday Still having some RUQ tenderness that has been less in severity than yesterday Has been tolerating her clear liquid diet Denies N/V Reports last BM was 07/09/23 which is not abnormal for her. States that she does not take a stool softener for constipation and that her stools are not hard when she has a BM. Will advance her diet if she tolerates and is feeling well she may be discharged. Follow up in the office in [address] Olivarez. Follow up with GI as per their instructions. (2) Acute pancreatitis: Plan: Patient had an ERCP 07/13/[address] of abdomen 07/15/23 reporting Acute pancreatitis Lipase 07/15/23 4039 today it is 2231. (3) Hypokalemia: Plan: potassium 3.2 this AM Ordered 20 MEQ tab PO Admission and Anticipated Discharge Date Admission Date: July 15, 2023 Subjective Patient sitting up in bed Reports is feeling better than yesterday Still having some RUQ tenderness Has been tolerating her clear liquid diet Review of Systems Gastrointestinal: + abdominal pain (RUQ tenderness ) and + constipation (last BM 07/09/23 pt states this is normal for her); no nausea and no vomiting Genitourinary: no problem reported Physical Exam Constitutional: well developed, cooperative and comfortable; no acute distress Respiratory: normal respiratory effort and able to speak in complete sentences; no respiratory distress Cardiovascular: Rate/Rhythm: + tachycardic (93) Gastrointestinal (Abdomen): Inspection/Auscultation: + abdominal surgical incision (port sites covered with dermabond c/d/i no s/s of infection noted ) Percussion/Palpation: + abdomen tender (RUQ) and abdomen soft; no guarding and abdomen not rigid Results & Data Vital Signs (Past 12 Hours) Vital Signs Temp Pulse Resp BP Pulse Ox O2 Del Method 07/16/23 08:00 97.7 F 93 H 18 156/84 H 96 Room Air 07/15/23 22:02 97.9 F 106 H 18 161/87 H 95 Room Air Diagnostic Findings [facility], [place] [phone] CT Scan Report Patient:MINDY LOUIE Admit Date:07/13/23 MR#:[id number] Address1:[address] Acct ID:[id number] Address2: Date:1975 [facility] Zip:[place] [address] Age:48 Location: Sex:F Room/Bed:E3[facility] Att Phy:Marvin Cooper DO Diagnosis:POST-OP PAIN Lin Phy:John Baker DO Service Date:07/15/23 Fam Phy: Interpreting Phy:Wayne Zavala MDAdmit Phy:Marvin Cooper DO Ordering Phy:Hollie Son PA-C cc: ~ CT OF THE ABDOMEN AND PELVIS WITH CONTRAST CLINICAL HISTORY: abdominal pain s/p stenting for bile leak COMPARISON STUDY: CT of the abdomen and pelvis and right upper quadrant ultrasound July 12, 2023. Nuclear medicine hepatobiliary scan July 13, 2023. TECHNIQUE: Following IV administration of 93 mL of Optiray, axial images of the abdomen and pelvis were obtained from the lung bases to the proximal femurs. Images were reviewed in the axial, sagittal, and coronal planes. IV contrast was administered without complication. Automated exposure control was utilized for the study. A dose lowering technique was utilized adhering to the principles of ALARA. CT DOSE: 1977.73 mGy.cm FINDINGS: Trace bilateral pleural effusions are noted. Subpleural opacities favor atelectasis. There has been interval development of a small amount of pneumoperitoneum within the right upper quadrant since CT of July 12, 2023. A small amount of abdominal fluid and moderate pelvic fluid has increased since prior CT. As expected, there is pneumobilia following placement of a well- positioned common bile duct stent. A pancreatic stent is in place. There has been interval development of a small to moderate amount of peripancreatic fluid. The pancreatic parenchyma is edematous. The pancreas enhances homogeneously. There is no biliary ductal dilatation. No well-defined fluid collections are present. Spleen, adrenal glands and kidneys are unremarkable with exception of multiple subcentimeter left renal lesions which are too small to characterize. An intrauterine device is in place. There is no evidence for a bowel obstruction. There is colonic diverticulosis without evidence for acute diverticulitis. The right colon is mildly dilated and fluid-filled. The appendix is unremarkable. Major vasculature is patent. IMPRESSION: 1. Interval development of findings consistent with acute pancreatitis, as described above. No evidence for pancreatic necrosis. 2. Increase in a moderate amount of fluid within the pelvis and a small amount of fluid within the abdomen, as described above. 3. Pneumoperitoneum within the right quadrant which is likely postprocedural and related to the known bile leak. 4. Well-positioned biliary and pancreatic stents. 5. Mildly distended right colon. No evidence for a bowel obstruction. ACT 112: Negative or not required by law. Electronically signed by: Wayne Zavala M.D. 07/15/2023 11:00 AM Dictated:07/15/23 1038 Transcribed: 07/15/23 1040 PG Care Time/CCT Total # of Minutes Spent Total Time Spent with Patient: Total time spent is greater than 50% in coordination of care (as documented) at patient's floor/unit and/or counseling patient: Coding Level of Care Code 71188 Post Operative Follow-Up Diagnoses Postoperative bile leak K91.89; K83.8 Acute pancreatitis K85.90 Hypokalemia E87.6
--- NOTE | 2023-07-16 11:10 | History & Physical Report ---
Date of Service July 16, 2023 Assessment & Plan (1) Acute pancreatitis: Plan: Patient is a 48 year old female that presented to [facility] ER on 07/12/23 with complaints of increasing abdominal pain over the last several days status post Laparoscopic cholecystectomy on 07/08/[address] Olivarez. She underwent a HIDA scan while in the ER that showed a Bile leak. The patient was admitted to the hospital and GI was consulted. The patient had an ERCP on 07/13/23 with placement of 2 stents per GI. Patient still had complaints of abdominal pain, and underwent a CT scan on 07/15/23 that showed acute pancreatitis. The patients lipase was 4039. Today the patients lipase is 2231. The patient denies nausea and vomiting at the present time and is tolerating her diet. (2) Hypokalemia: Plan: potassium 3.2 Repeated with 20MEQ PO tab (3) Postoperative bile leak: Plan: S/p ERCP with two stents placed on 07/13/23 Plan The patient is stable for discharge and her pain is controlled. She is to follow up with Dr. Olivarez and GI as an outpatient. Admission and Anticipated Discharge Date Admission Date: July 15, 2023 History of Present Illness Chief Complaint: Patient is a 48 year old female that presented to [facility] ER on 07/12/23 with complaints of increasing abdominal pain over the last several days status post Laparoscopic cholecystectomy on 07/08/[address] Olivarez. She underwent a HIDA scan while in the ER that showed a Bile leak. The patient was admitted to the hospital and GI was consulted. The patient had an ERCP on 07/13/23 with placement of 2 stents per GI. Patient still had complaints of abdominal pain, and underwent a CT scan on 07/15/23 that showed acute pancreatitis. Primary Care Provider: John Baker Allergies Allergy/AdvReac Type Severity Reaction Status Date / Time chlorzoxazone Allergy Severe THROAT & Verified 07/12/23 22:42 FACIAL SWELLING ciprofloxacin Allergy Intermediate Hives Verified 07/12/23 22:42 ferrous fumarate Allergy Intermediate Hives Verified 07/12/23 22:42 [From Prenatabs FA] folic acid Allergy Intermediate Hives Verified 07/12/23 22:42 [From Prenatabs FA] vitamins with Allergy Intermediate Hives Verified 07/12/23 22:42 calcium no.78 [From Prenatabs FA] Quinolones Allergy Intermediate Hives Verified 07/12/23 22:42 Home Medications Medication Instructions Recorded Confirmed Type bupropion HCl 150 mg 24 hr tablet, 150 mg PO QAM 12/30/21 07/12/23 History extended release (Wellbutrin XL) bupropion HCl 300 mg 24 hr tablet, 300 mg PO QAM 12/30/21 07/12/23 History extended release (Wellbutrin XL) duloxetine 60 mg capsule,delayed 60 mg PO BID 12/30/21 07/12/23 History release (Cymbalta) levothyroxine 125 mcg capsule 125 mcg PO QAM 12/30/21 07/12/23 History losartan 100 mg tablet 100 mg PO QAM 11/27/22 07/12/23 History pantoprazole 40 mg tablet,delayed 40 mg PO DAILY #90 tabs 06/03/23 07/12/23 Rx release (Protonix) ergocalciferol (vitamin D2) 1,250 50,000 unit PO WE 07/08/23 07/12/23 History mcg (50,000 unit) capsule (Vitamin D2) oxycodone-acetaminophen 5 mg-325 1 - 2 tab PO .q4-6h PRN pain, for 07/08/23 07/12/23 Rx mg tablet (Percocet) initial therapy, max 6 tabs per day #15 tabs semaglutide 1 mg/dose (4 mg/3 mL) 0 mg subcut WE 07/08/23 07/12/23 History subcutaneous pen injector (Ozempic) amoxicillin 875 mg-potassium 1 tab PO BID #20 tabs 07/14/23 Rx clavulanate 125 mg tablet Past Med/Surg History Medical History Depression Morgan's thyroiditis History of COVID-09 SEPTEMBER 2022>RESOLVED Hypertension Hypothyroidism Morbid obesity with BMI of 40.0-44.9, adult Postoperative bile leak Surgical History History of carpal tunnel release left History of foot surgery plantar warts removed History of tonsillectomy History of wisdom tooth extraction under local Hx laparoscopic cholecystectomy (07/08/23) Laparoscopic Cholecystectomy(Not Applicable) - Rosas Olivarez DO, FACS Family History Mother Family history of reaction to anesthesia difficulty waking Social History Smoking Status: Never smoker Tobacco Type: Cigarettes Second Hand Exposure: No; Do You Dip or Chew Tobacco: No; Hx Alcohol Use: No Hx Substance Use: No Preferred Language: Tristanian Communication Ability: Effective Visual Impairment: No Limitations [employer] Supervisor Required: No Beliefs That Will Affect Care: None Current Living Situation: Family Current Living Situation Comment: Lives with children Other Information That Helps Us Care for You: No Feels Safe at Home: Yes Safety Concerns: Feels Safe At This Time Assistive Devices: None Review of Systems Constitutional: no fever, no chills and no sweats Respiratory: no dyspnea Cardiovascular: no chest pain Gastrointestinal: + abdominal pain (tender in RUQ); no nausea and no vomiting Genitourinary: no problem reported Physical Exam Physical Exam: patient is pleasant, alert and oriented Constitutional: well developed, cooperative and comfortable; no acute distress Respiratory: normal respiratory effort and able to speak in complete sentences; no respiratory distress and does not use accessory muscles Cardiovascular: Rate/Rhythm: + tachycardic (93) Gastrointestinal (Abdomen): Inspection/Auscultation: + abdominal surgical incision (C/D/I surgical glue over port sites ) Percussion/Palpation: + abdomen tender and abdomen soft; no guarding and abdomen not rigid Results & Data Results & Data Vital Signs (Past 12 Hours) Vital Signs Temp Pulse Resp BP Pulse Ox O2 Del Method 07/16/23 08:00 97.7 F 93 H 18 156/84 H 96 Room Air Code Status & VTE Plan VTE Prophylaxis Plan VTE Prophylaxis will be ordered: Yes PG Care Time/CCT Total # of Minutes Spent Total Time Spent with Patient: Total time spent is greater than 50% in coordination of care (as documented) at patient's floor/unit and/or counseling patient: Coding Level of Care Code 19315 INT INP/OBS CARE 2/55MIN Diagnoses Acute pancreatitis K85.90 Hypokalemia E87.6 Postoperative bile leak K91.89; K83.8
[2023-07-16] MEDS: PANTOprazole 40 MG in SYRINGE 0 ML IV SCH (11:20)
--- NOTE | 2023-08-04 07:38 | Discharge Summary ---
Date of Service 07/16/23 Principal Diagnosis Acute pancreatitis Discharge Exam Constitutional well developed, cooperative and comfortable Respiratory normal respiratory effort and + respiratory distress Gastrointestinal (Abdomen) Inspection/Auscultation: + abdominal surgical incision + abdominal surgical incision (C/D/I surgical glue over port sites ) Percussi on/Palpation: + abdomen tender and abdomen soft; no guarding and abdomen not rigid Discharge Data Allergies Allergy/AdvReac Type Severity Reaction Status Date / Time chlorzoxazone Allergy Severe THROAT & Verified 08/01/23 19:44 FACIAL SWELLING ciprofloxacin Allergy Intermediate Hives Verified 08/01/23 19:44 ferrous fumarate Allergy Intermediate Hives Verified 08/01/23 19:44 [From Prenatabs FA] folic acid Allergy Intermediate Hives Verified 08/01/23 19:44 [From Prenatabs FA] vitamins with Allergy Intermediate Hives Verified 08/01/23 19:44 calcium no.78 [From Prenatabs FA] Quinolones Allergy Intermediate Hives Verified 08/01/23 19:44 Consultations 07/12/23 22:53 Consult General Surgery Routine 07/13/23 11:46 Consult Gastroenterology Routine Procedures Performed Operation Date: 07/13/23 13:40 Actual Procedures p Endoscopic Retrograde Cholangiopancreato with pancreatic and biliary stent placement - Lisa Castro, Ordered Studies 07/12/23 21:42 CT abd pelvis IV con only Stat 07/12/23 23:11 US RUQ [US liver] Stat 07/13/23 00:03 CT angio chest PE protocol Stat 07/13/23 12:37 [place] ERCP biliary ductal Routine 07/15/23 08:39 CT abd pelvis IV con only Urgent Hospital Course (1) Acute pancreatitis: Patient is a 48 year old female that presented to [facility] ER on 07/12/23 with complaints of increasing abdominal pain over the last several days status post Laparoscopic cholecystectomy on 07/08/[address] Olivarez. She underwent a HIDA scan while in the ER that showed a Bile leak. The patient was admitted to the hospital and GI was consulted. The patient had an ERCP on 07/13/23 with placement of 2 stents per GI. Patient still had complaints of abdominal pain, and underwent a CT scan on 07/15/23 that showed acute pancreatitis. The patients lipase was 4039. Patient was initially made NPO, and given IV fluids. Diet was slowly advanced and patient was d/c home in stable condition on 07/16/23. Total Time Total Time Spent Total Time Spent (In Minutes): 20 Discharge Plan Discharge Items Patient Disposition: Home - Self-Care Reason For Visit: POST-OP PAIN Discharge Diagnosis: bile leak pancreatitis Condition on Discharge: Good Activity: Per Instructions section Activity Comment: No strenuous activity or heavy lifting for 1-2 more week Lifting: No more than 25 pounds Lifting Comment: For 1-2 more weeks Bathing Comment: may shower; no soaking in tubs/pools x 2 weeks from surgery Exercise/Sports: Gradually increase as tolerated Driving/Machine Use: No driving while taking narcotics for pain Non-emergency contact: Surgeon Call non-emergency contact if: you have any medication questions, your symptoms worsen, your pain is not controlled, you have a fever, your temperature is above 101.5, your wound has increased redness, your wound has increased drainage and your wound pain has increased Follow-up/Referrals: Rosas Olivarez DO, FACS [Physician] - 07/22/23 11:45 am (Follow up in clinic within 1-2 weeks) Lisa Castro DO [Physician] - (call to schedule follow up for a repeat ERCP and stent removal in 6 weeks) John Baker [Primary Care Provider] - 07/30/23 1:00 pm Diet: Low Fat Addtl Attending Provider Instructions: You will need to call the GI office to schedule for a repeat ERCP and stent removal in 6 weeks time Please avoid any NSAID medications 5 days from initiral ERCP take all of your prescribed antibiotics even if you are feeling better Continue to stay hydrated Pending Studies at Discharge: No Stand-Alone Forms: My [facility] [employer], Smoking Cessation Medications and DC Order Prescriptions: Continued pantoprazole [Protonix] 40 mg tablet,delayed release (DR/EC) 40 mg PO DAILY Qty: 90 2RF levothyroxine 125 mcg capsule 125 mcg PO QAM duloxetine [Cymbalta] 60 mg capsule,delayed release(DR/EC) 60 mg PO BID bupropion HCl [Wellbutrin XL] 300 mg tablet extended release 24 hr 300 mg PO QAM Rx Instructions: TOTAL DOSE 450 MG--TAKES WITH 150 MG TAB. bupropion HCl [Wellbutrin XL] 150 mg tablet extended release 24 hr 150 mg PO QAM Rx Instructions: TOTAL DOSE 450 MG--TAKES WITH 300 MG TAB. losartan 100 mg Tablet 100 mg PO QAM ergocalciferol (vitamin D2) [Vitamin D2] 1,250 mcg (50,000 unit) capsule 50,000 unit PO WK Rx Instructions: SATURDAYS oxycodone-acetaminophen [Percocet] 5-325 mg tablet 1 - 2 tab PO .q4-6h PRN (Reason: pain, for initial therapy, max 6 tabs per day) Qty: 15 0RF Held Ozempic 1 mg/dose (4 mg/3 mL) pen injector 0 mg subcut WE Hold Instructions: Resume on 07/19/23. Discussed with prescribing provider regarding continuation of your Ozempic Rx Instructions: PER PT "HAVEN'T HAD FOR ABOUT 2 WEEKS". Discharge Orders: Discharge Order (Routine); Ordered 07/16/23 Ordered By: Myron Chang/Other Patient Handouts: ERCP, Pancreatitis Acute Dc Admission Data Admit Date/Time: 07/15/23 13:34 Attending Provider: Marvin Cooper Admit Provider: Marvin Cooper Primary Care Provider: John Baker Other Providers: Marvin Cooper ; Jayesh Mesa Other Interventions: Discharge Summary Assessment (RN) Last Done: 07/16/23 13:30 Coding Level of Care Code 87003 IN/OBS DISCH 30 MIN/LESS Diagnoses Acute pancreatitis K85.90
== END 2023-07-16 14:47 | disposition home or self-care (01) | DRG 393 ==
LOC: ED 15:53 → EDINP 15:53 → 3E 07-13 18:00